=== PATIENT | female | born 1980 | race Caucasian/White ===

== ENCOUNTER 2018-08-19 11:31 | Emergency (ER) | payer OTHER, MEDICAID, SELFPAY ==
[2018-08-19 11:33] VITALS: BP 153/98; PULSE 108; RESP 20; TEMP 36.6; O2SAT 98; BMI 31.3
[2018-08-19 12:06] LABS: Appearance Urine UA SL CLOUDY; Bilirubin Urine UA NEGATIVE (NEGATIVE); Color Urine UA ORANGE; Glucose Urine UA 1+ g/dL (Normal); Ketones Urine UA TRACE (NEGATIVE); Leukocyte Esterase Urine UA 1+ (NEGATIVE); Nitrite Urine UA POSITIVE (Negative); Occult Blood Urine UA 1+ (Negative); Protein Urine UA 3+ (Negative); Specific Gravity Urine UA 1.015 (1.000-1.035); Urobilinogen Urine UA >=8.0 E.U./dL (0.2); pH Urine UA 6.5 (4.5-8.0)
[2018-08-19 12:10] LABS: Pregnancy Test Urine Negative (Negative)
[2018-08-19 12:22] LABS: Bacteria Urine Many (>30); Culture Indicated Urine Specimen Cultured; Mucus Urine 2+ (Negative); RBC Urine 5-10/HPF (0-5/HPF); Squamous Epithelial Cell Urine 1-5 /HPF; WBC Urine 1-5/HPF (0-5/HPF)
--- NOTE | 2018-08-19 12:24 | ED.FEMALEGU ---
HPI - Female Genitourinary General Chief complaint: Urogenital-Female Stated complaint: Kidney Stones Time Seen by Provider: 08/19/18 12:24 Source: patient Mode of arrival: ambulatory Limitations: no limitations History of Present Illness HPI Narrative: Patient is a 37-year-old female with history of kidney stones presenting with left flank pain and painful frequent urination. She says she has had some dysuria for the last 2 days but today is the 1st day when to her flank and is now radiating to her abdomen like previous kidney stones. She feels nauseous at times but no vomiting. No fevers or chills. She says Toradol never works for her but Dilaudid does. MD Complaint: dysuria and UTI Related Data Home Medications Medication Instructions Recorded Confirmed sertraline [Zoloft] 150 mg PO QPM 08/19/18 08/19/18 spironolactone 100 mg PO DAILY 08/19/18 08/19/18 Previous Rx's Medication Instructions Recorded lorazepam 0.5 mg tablet 0.5 mg PO BIDP PRN #10 tab 08/19/18 meloxicam [Mobic] 7.5 mg PO DAILY PRN #20 tab 08/19/18 nitrofurantoin monohyd/m-cryst 100 mg PO Q12H 7 Days #14 cap 08/19/18 [Macrobid] ondansetron 4 mg PO Q6-8H PRN #10 tab 08/19/18 oxycodone-acetaminophen 1 tab PO Q4-6H PRN #10 tab 08/19/18 Allergies Allergy/AdvReac Type Severity Reaction Status Date / Time hydrocodone [HYDROCODONE] AdvReac Unknown ITCHING Verified 08/19/18 11:41 Review of Systems Review of Systems GENERAL: Denies chills, fatigue, malaise, fever, sweats, travel HEENT: Denies sinus pain, ear pain, sore throat, difficulty swallowing, neck pain RESPIRATORY: Denies dyspnea, cough, wheezing, hemoptysis, sputum. CARDIOVASCULAR: Denies chest pain, palpitations, orthopnea, edema GASTROINTESTINAL: Denies nausea, vomiting, abdominal pain, diarrhea, constipation, melena. : See HPI MUSCULOSKELETAL: Denies weakness, joint pain, or bony pain SKIN: No rash, no erythema, no pruritus NEUROLOGIC: Denies weakness, dizziness, headache, numbness, change in speech, confusion PSYCHIATRIC: No concerning psychosocial issues. 12 point review of systems is negative except for those stated above and HPI PFSH Medical History Kidney stones (Acute) Anxiety (Chronic ~1997) Depression (Chronic ~1997) Irregular periods/menstrual cycles (Chronic ~1997) Ovarian cyst (Chronic ~1997) Surgical History Anesthesia (Resolved) History of back surgery (Resolved) History of third molar tooth extraction (Resolved) Status post delivery (Resolved 04/23/02) Status post delivery (Resolved 03/20/05) Status post delivery (Resolved 2016) Social History marital status: unmarried,living together number of children: 3 household members: family lives independently: Yes education level: college occupational status: employed Smoking Status: Never smoker alcohol intake: current substance use type: does not use Exam Initial Vital Signs Initial Vital Signs: Vital Signs Temperature 98 F 08/19/18 11:33 Pulse Rate 108 H 08/19/18 11:33 Respiratory Rate 20 08/19/18 11:33 Blood Pressure 153/98 H 08/19/18 11:33 Pulse Oximetry 98 08/19/18 11:33 GENERAL: Appears uncomfortable holding left flank HEENT: Head atraumatic,EOMI, pupils reactive, face symmetric, CARDIOVASCULAR: Regular rate and rhythm without murmurs, rubs or gallops. RESPIRATORY: Breath sounds equal bilaterally, no wheezes rales or rhonchi. ABDOMEN: Soft, nontender. Normoactive bowel sounds all 4 quadrants. No guarding or rebound. : Left CVA tenderness EXTREMITIES: Normal range of motion, no clubbing or edema. Neurovascularly intact NEUROLOGICAL: Alert and oriented x4.Normal gait and speech. Cranial nerves II through XII grossly intact. SKIN: Warm, dry, no laceration, no petechiae, no rashes or lesions. Course Orders Ordered: ED Orders 08/19/18 11:57 Test Urine Stat UA dip and micro [Urinalysis and Microscopic] Stat Urine Culture Stat 08/19/18 12:38 Complete Blood Count AUTO DIFF Stat Comprehensive Metabolic Panel Stat Lipase Stat Discontinued Medications Hydromorphone HCl (Dilaudid) 1 mg IV NOW ONE Stop: 08/19/18 13:28 Last Admin: 08/19/18 13:38 Dose: 1 mg Sodium Chloride (Normal Saline 0.9%) 1,000 mls @ 1,000 mls/hr IV CONT REMY Last Infusion: 08/19/18 14:00 Dose: 0 mls/hr Admin: 08/19/18 12:46 Dose: 1,000 mls/hr Lidocaine HCl 6.8 ml/ Sodium (Chloride) 56.8 mls @ 340.8 mls/hr IV NOW ONE Stop: 08/19/18 12:54 Last Infusion: 08/19/18 13:43 Dose: 0 mls/hr Admin: 08/19/18 13:05 Dose: 340.8 mls/hr Ketorolac Tromethamine (Toradol) 30 mg IV NOW ONE Stop: 08/19/18 12:30 Last Admin: 08/19/18 12:46 Dose: 30 mg Ondansetron HCl (Zofran) 4 mg IV NOW ONE Stop: 08/19/18 12:30 Last Admin: 08/19/18 12:46 Dose: 4 mg Vital Signs - 8 hr 08/19/18 11:33 08/19/18 12:47 08/19/18 13:08 Temperature 98 F Pulse Rate 108 H 84 74 Respiratory Rate 20 22 18 Blood Pressure 153/98 H Blood Pressure [Right Arm] 139/87 145/98 H Pulse Oximetry 98 99 08/19/18 14:00 08/19/18 14:46 Temperature Pulse Rate 81 74 Respiratory Rate 18 16 Blood Pressure Blood Pressure [Right Arm] 137/86 134/84 Pulse Oximetry 98 MDM - Female Genitourinary Lab Data Attestation: I reviewed the patient's lab results. Result diagrams: 08/19/18 12:38 08/19/18 12:38 Lab Results 08/19/18 08/19/18 08/19/18 Range/Units 11:57 11:57 12:38 WBC 8.1 (4.5-11.0) X10^3/uL RBC 5.17 (4.0-5.2) X10^6/uL Hgb 14.6 (12.0-16.0) g/dL Hct 43.0 (36-46) % MCV 83.2 (80-100) fL MCH 28.3 (26-34) PG MCHC 34.0 (30-36) % RDW 13.6 (11.6-14.8) % Plt Count 152 (150-400) X10^3/uL Neut % (Auto) 75.2 H (50-75) % Lymph % (Auto) 18.5 L (25-40) % [place] % (Auto) 5.5 (3-14) % Eos % (Auto) 0.4 L (2-4) % Baso % (Auto) 0.4 (0-2) % Neut # (Auto) 6100 (9928-1995) /uL Sodium (137-145) mmol/L Potassium (3.4-5.1) mmol/L Chloride (98-107) mmol/L Carbon Dioxide (22-32) mmol/L BUN (7-17) mg/dL Creatinine (0.52-1.04) mg/dL Estimated GFR (>60) mL/min BUN/Creatinine Ratio (6-22) Glucose (70-100) mg/dL Calcium (8.4-10.2) mg/dL Total Bilirubin (0.2-1.3) mg/dL AST (14-36) IU/L ALT (9-52) IU/L Alkaline Phosphatase (38-126) U/L Total Protein (6.3-8.2) g/dL Albumin (3.5-5.0) g/dL Globulin (1.7-4.1) g/dL Albumin/Globulin Ratio (1.0-2.8) Lipase (23-300) U/L Urine Color [place] Urine Appearance Sl cloudy Urine pH 6.5 (4.5-8.0) Ur Specific [place] 1.015 (1.000-1.035) Urine Protein 3+ H (Negative) Urine Glucose (UA) 1+ (Normal) g/dL Urine Ketones Trace H (NEGATIVE) Urine Occult Blood 1+ H (Negative) Urine Nitrate Positive H (Negative) Urine Bilirubin Negative (NEGATIVE) Urine Urobilinogen >=8.0 (0.2) E.U./dL Ur Leukocyte Esterase 1+ H (NEGATIVE) Urine RBC 5-10/hpf H (0-5/HPF) Urine WBC 1-5/hpf (0-5/HPF) Ur Squamous Epith Cells 1-5 /hpf Urine Bacteria Many (>30) H (None) Urine Mucus 2+ H (Negative) Ur Culture Indicated? Specimen cultured Micro UA Comment Not Reportable Urine Test Negative (Negative) 08/19/18 Range/Units 12:38 WBC (4.5-11.0) X10^3/uL RBC (4.0-5.2) X10^6/uL Hgb (12.0-16.0) g/dL Hct (36-46) % MCV (80-100) fL MCH (26-34) PG MCHC (30-36) % RDW (11.6-14.8) % Plt Count (150-400) X10^3/uL Neut % (Auto) (50-75) % Lymph % (Auto) (25-40) % [place] % (Auto) (3-14) % Eos % (Auto) (2-4) % Baso % (Auto) (0-2) % Neut # (Auto) (4444-3135) /uL Sodium 144 (137-145) mmol/L Potassium 3.9 (3.4-5.1) mmol/L Chloride 105 (98-107) mmol/L Carbon Dioxide 27 (22-32) mmol/L BUN 12 (7-17) mg/dL Creatinine 0.70 (0.52-1.04) mg/dL Estimated GFR > 60.0 (>60) mL/min BUN/Creatinine Ratio 17.1 (6-22) Glucose 106 H (70-100) mg/dL Calcium 9.3 (8.4-10.2) mg/dL Total Bilirubin 0.6 (0.2-1.3) mg/dL AST 18 (14-36) IU/L ALT 22 (9-52) IU/L Alkaline Phosphatase 68 (38-126) U/L Total Protein 7.1 (6.3-8.2) g/dL Albumin 4.4 (3.5-5.0) g/dL Globulin 2.7 (1.7-4.1) g/dL Albumin/Globulin Ratio 1.6 (1.0-2.8) Lipase 55 (23-300) U/L Urine Color Urine Appearance Urine pH (4.5-8.0) Ur Specific [place] (1.000-1.035) Urine Protein (Negative) Urine Glucose (UA) (Normal) g/dL Urine Ketones (NEGATIVE) Urine Occult Blood (Negative) Urine Nitrate (Negative) Urine Bilirubin (NEGATIVE) Urine Urobilinogen (0.2) E.U./dL Ur Leukocyte Esterase (NEGATIVE) Urine RBC (0-5/HPF) Urine WBC (0-5/HPF) Ur Squamous Epith Cells Urine Bacteria (None) Urine Mucus (Negative) Ur Culture Indicated? Micro UA Comment Urine Test (Negative) MDM Narrative Medical decision making narrative: Toradol and lidocaine helped slightly take the edge off of the pain however she is still quite uncomfortable. She is given 1 dose of Dilaudid. I suspect that she has knee stone. She said that she has never needed intervention for her kidney stones. She has had multiple CTs in the past this time I do not see indication for a CT. She also likely has UTI and possible pyelonephritis but does not appear septic or toxic. This time treat as outpatient with antibiotics and pain meds. Discharge Plan Departure Patient Disposition: Home Clinical Impression: UTI (urinary tract infection), Kidney stone on left side Discharge Date/Time: 08/19/18 15:14 Interventions: ED Discharge Assessment Last Done: 08/19/18 15:15 Instructions: Urinary Tract Infection, DI for Kidney Stones Activity Restrictions/Additional Instructions: *You have been diagnosed with presumed left-sided kidney stone and bladder infection *What to do: Increase fluid intake, expect to pass stone in the next 2-3 days *Continue to take medications as directed: FAXED TO [facility] IN [place] Mobic once a day for inflammation Percocet 1 tab every 6 hr as needed for severe pain Zofran 1 tab every 868 hr if needed for nausea or vomiting Bactrim 1 tab twice a day for 7 days *Follow up with your primary care provider in 2-3 days, talk to her PCP about referral to Urology *Return to ER if you should have persistent vomiting, increasing or any new, worsening or concerning symptoms Prescriptions: New meloxicam [Mobic] 7.5 mg tablet 7.5 mg PO DAILY PRN (Reason: pain) Qty: 20 RF: 0 oxycodone-acetaminophen 5-325 mg tablet 1 tab PO Q4-6H PRN (Reason: pain) Qty: 10 RF: 0 nitrofurantoin monohyd/m-cryst [Macrobid] 100 mg capsule 100 mg PO Q12H 7 Days Qty: 14 RF: 0 ondansetron 4 mg tablet,disintegrating 4 mg PO Q6-8H PRN (Reason: nausea and vomiting) Qty: 10 RF: 0 No Action lorazepam 0.5 mg tablet 0.5 mg PO BIDP PRN (Reason: anxiety) Qty: 10 RF: 0 sertraline [Zoloft] 100 mg tablet 150 mg PO QPM RF: 0 spironolactone 100 mg tablet 100 mg PO DAILY RF: 0 Referrals: Nayeli Levi DO [Primary Care Provider] -
[2018-08-19] MEDS: KETOROLAC 60 MG/2 ML VIAL 30 MG IV (12:46)
[2018-08-19] MEDS: ONDANSETRON 4 MG/2 ML INJ IV (12:46)
[2018-08-19] MEDS: SODIUM CHLORIDE 0.9% 1,000 ML 1000 ML IV (12:46)
[2018-08-19 12:47] VITALS: BP 139/87; PULSE 84; RESP 22; O2SAT 99
[2018-08-19 12:57] LABS: Add Manual Diff / Slide Review NO; Basophils Percent Auto 0.4 % (0-2); Eosinophils Percent Auto 0.4 % (2-4); Hemoglobin 14.6 g/dL (12.0-16.0); Lymphocytes Percent Auto 18.5 % (25-40); Mean Corpuscular Hemoglobin 28.3 PG (26-34); Mean Corpuscular Volume 83.2 fL (80-100); Monocytes Percent Auto 5.5 % (3-14); Neutrophils Absolute Auto 6100 /uL (1500-7000); Neutrophils Percent Auto 75.2 % (50-75); Platelet Count 152 X10^3/uL (150-400); Red Blood Cell Count 5.17 X10^6/uL (4.0-5.2); Red Cell Distribution Width 13.6 % (11.6-14.8); White Blood Cell Count 8.1 X10^3/uL (4.5-11.0)
[2018-08-19] MEDS: LIDOCAINE 2% 6.8 ML in SODIUM CHLORIDE 0.9% 50 ML 340.8 ML IV (13:05)
[2018-08-19 13:08] VITALS: BP 145/98; PULSE 74; RESP 18
--- NOTE | 2018-08-19 13:08 | PC.NURSE ---
pt states, no relief from toradol, pain worsen, lidocaine drip initiated.
[2018-08-19 13:13] LABS: Alanine Aminotransferase 22 IU/L (9-52); Albumin 4.4 g/dL (3.5-5.0); Albumin Globulin Ratio 1.6 (1.0-2.8); Alkaline Phosphatase 68 U/L (38-126); Aspartate Aminotransferase 18 IU/L (14-36); BUN Creatinine Ratio 17.1 (6-22); Bilirubin Total 0.6 mg/dL (0.2-1.3); Blood Urea Nitrogen 12 mg/dL (7-17); Calcium 9.3 mg/dL (8.4-10.2); Carbon Dioxide 27 mmol/L (22-32); Chloride 105 mmol/L (98-107); Estimated Glomerular Filt Rate > 60.0 mL/min (>60); Globulin 2.7 g/dL (1.7-4.1); Glucose 106 mg/dL (70-100); HEMOLYSIS < 15 (0-50); Lipase 55 U/L (23-300); Potassium 3.9 mmol/L (3.4-5.1); Sodium 144 mmol/L (137-145); Total Protein 7.1 g/dL (6.3-8.2)
[2018-08-19] MEDS: HYDROMORPHONE 2 MG INJ 1 MG IV (13:38)
[2018-08-19 14:00] VITALS: BP 137/86; PULSE 81; RESP 18; O2SAT 98
[2018-08-19 14:46] VITALS: BP 134/84; PULSE 74; RESP 16
== END 2018-08-19 15:14 | disposition home or self-care (01) ==
PROVIDERS: Emergency Provider Emergency Medicine; PCP Family Medicine
DX: N39.0 Urinary tract infection, site not specified (principal); N20.0 Calculus of kidney
CPT/HCPCS: 36591; 80053; 81001; 81025; 83690; 85025; 87086; 96361; 96365; 96375; 99283; 99284; J1170; J1885; J2405

== ENCOUNTER → 2018-10-17 14:09 | Outpatient (CLI) | payer OTHER, MEDICAID, SELFPAY ==
--- NOTE | 2018-10-17 | DI.MG.S_ITS ---
BILATERAL DIGITAL SCREENING MAMMOGRAM 3D/2D WITH CAD: 10/17/2018 CLINICAL: Baseline exam. Routine screening. No prior exams were available for comparison. The tissue of both breasts is heterogeneously dense. This may lower the sensitivity of mammography. Current study was also evaluated with a Computer Aided Detection (CAD) system. No significant masses, calcifications, or other findings are seen in either breast. IMPRESSION: NEGATIVE There is no mammographic evidence of malignancy. A 1 year screening mammogram is recommended. This exam was interpreted at Station ID: [id number]. NOTE: For mammograms, a report in lay terms will be sent to the patient. Approximately 15% of breast malignancies will not be visualized mammographically. In the management of a palpable breast mass, a negative mammogram must not discourage biopsy of a clinically suspicious lesion. Electronically Signed By: Marino latham/duong:10/17/2018 15:31:39 copy to: Nayeli Levi letter sent: Normal Exam ACR BI-RADS Category 1: Negative [id number]
== END ==
PROVIDERS: PCP Family Medicine; Visit Provider Obstetrics & Gynecology
DX: Z12.31 Encounter for screening mammogram for malignant neoplasm of breast (principal)
CPT/HCPCS: 77063; 77067

== ENCOUNTER 2018-11-15 16:51 | Emergency (ER) | payer OTHER, MEDICAID, SELFPAY ==
[2018-11-15 17:07] VITALS: BP 134/78; PULSE 100; RESP 20; TEMP 36.9; O2SAT 100; BMI 32.3
[2018-11-15 18:12] LABS: Add Manual Diff / Slide Review NO; Basophils Absolute Auto 0 /uL (0-100); Basophils Percent Auto 0.3 % (0-2); Eosinophils Absolute Auto 0 /uL (0-450); Eosinophils Percent Auto 0.5 % (2-4); Hematocrit 45.3 % (36-46); Hemoglobin 15.6 g/dL (12.0-16.0); Lymphocytes Absolute Auto 1400 /uL (1100-4500); Lymphocytes Percent Auto 15.1 % (25-40); Mean Corpuscular HGB Conc 34.5 % (30-36); Mean Corpuscular Hemoglobin 28.7 PG (26-34); Mean Corpuscular Volume 83.3 fL (80-100); Monocytes Absolute Auto 400 /uL (0-900); Monocytes Percent Auto 4.4 % (3-14); Neutrophils Absolute Auto 7300 /uL (1500-7000); Neutrophils Percent Auto 79.7 % (50-75); Platelet Count 181 X10^3/uL (150-400); Red Blood Cell Count 5.44 X10^6/uL (4.0-5.2); Red Cell Distribution Width 13.4 % (11.6-14.8); White Blood Cell Count 9.1 X10^3/uL (4.5-11.0)
[2018-11-15 18:21] LABS: Prothrombin Time 11.1 SECONDS (10.1-12.7)
[2018-11-15 18:24] LABS: Amylase 39 U/L (30-110); PTT Partial Thromboplastin Tim 29 SECONDS (26.4-36.2)
[2018-11-15 18:25] LABS: Alanine Aminotransferase 48 IU/L (9-52); Albumin 4.6 g/dL (3.5-5.0); Albumin Globulin Ratio 1.4 (1.0-2.8); Alkaline Phosphatase 72 U/L (38-126); Aspartate Aminotransferase 37 IU/L (14-36); BUN Creatinine Ratio 14.3 (6-22); Bilirubin Total 0.8 mg/dL (0.2-1.3); Blood Urea Nitrogen 10 mg/dL (7-17); Carbon Dioxide 26 mmol/L (22-32); Chloride 97 mmol/L (98-107); Estimated Glomerular Filt Rate > 60.0 mL/min (>60); Globulin 3.4 g/dL (1.7-4.1); Glucose 131 mg/dL (70-100); HEMOLYSIS < 15 (0-50); Lipase 25 U/L (23-300); Potassium 3.2 mmol/L (3.4-5.1); Sodium 136 mmol/L (137-145)
[2018-11-15] MEDS: MORPHINE 4 MG/ML INJ IV ×2 (18:25→19:26)
[2018-11-15] MEDS: ONDANSETRON 4 MG/2 ML INJ IV ×2 (18:25→19:26)
--- NOTE | 2018-11-15 18:30 | DI.CT.S_ITS ---
PROCEDURE: CT ABDOMEN PELVIS W CON INDICATIONS: abd pain, bloating, feels like need to fart but can't. TECHNIQUE: After the administration of intravenous contrast, 5 mm thick sections acquired from the diaphragm to the symphysis. 5 mm coronal and sagittal reformats were acquired. For radiation dose reduction, the following was used: automated exposure control, adjustment of mA and/or kV according to patient size. COMPARISON: None. FINDINGS: Image quality: Excellent. ABDOMEN: Lung bases: Lung bases are clear. Heart size is normal. Solid organs: Liver is normal in size and enhancement. Gallbladder is within normal limits. Biliary system is non dilated. Pancreas enhances normally. Spleen is mildly enlarged measuring 14.3 cm long axis. Spleen is normal in enhancement. No adrenal nodules. Kidneys demonstrate normal size and enhancement, without hydronephrosis. 3 mm nonobstructing stone in the superior pole of the left kidney. 5 mm nonobstructing stone in the interpolar left kidney. 3 mm nonobstructing stone in the midpole of the right kidney. 2 mm nonobstructing stone in the midpole of the right kidney. Peritoneum and bowel: Bowel loops demonstrate normal wall thickness. Large amount of stool noted in the right colon. Moderate amount of stool noted in the proximal transverse colon. No free fluid or air. The appendix is normal. Nodes and vessels: No retroperitoneal or mesenteric adenopathy by size criteria. Aorta and inferior vena cava are normal in size. Miscellaneous: No ventral hernias. PELVIS: Genitourinary: Bladder wall thickness is normal. 3.3 cm left adnexal cysts. Miscellaneous: No inguinal hernias or adenopathy. Bones: No suspicious bony lesions. No vertebral body compression fractures. Lower lumbar spine fixation hardware. IMPRESSION: 1. Large amount of stool in the right colon concerning for constipation. Air graft to the appendix is normal. 3. 3.3 cm left ovarian cyst. 4. Bilateral nonobstructing renal stones. 4. Splenomegaly of uncertain etiology. Dictated by: Destiney Stack MD, PhD on 11/15/2018 at 19:56 Approved by: Destiney Stack MD, PhD on 11/15/2018 at 20:03
--- NOTE | 2018-11-15 18:39 | ED_ITS ---
HPI - Abdominal Pain <KENNA Doe-BC - Last Filed: 11/15/18 21:36> General Chief Complaint: Abdominal Pain Stated Complaint: Thinks her appendix ruptured Time Seen by Provider: 11/15/18 17:41 Source: patient and family Mode of arrival: ambulatory Limitations: no limitations History of Present Illness HPI narrative: Patient is a 38-year-old female with history of insomnia is a nonsmoker presents with her with a chief complaint of abdominal pain x2 days. She complains of difficulty having bowel movements, not passing gas, requesting a straw into her rectum to help decrease the pressure. She complains of lower back pain, nausea. She has not vomited today. She denies any fever. She states she has barely eaten anything today and is requesting chapstick the emergency department. She denies any abdominal surgeries other than sections. She does have a history of several spinal surgeries. She denies any dysuria urgency or frequency. Last menstrual period was approximately 4 weeks ago. Related Data Home Medications Medication Instructions Recorded Confirmed sertraline [Zoloft] 150 mg PO QPM 08/19/18 11/04/18 spironolactone 100 mg PO DAILY 08/19/18 11/04/18 Previous Rx's Medication Instructions Recorded meloxicam [Mobic] 7.5 mg PO DAILY PRN #20 tab 08/19/18 ondansetron 4 mg PO Q6-8H PRN #10 tab 08/19/18 oxycodone-acetaminophen 1 tab PO Q4-6H PRN #10 tab 08/19/18 lorazepam 0.5 mg tablet 0.5 mg PO BIDP PRN #10 tab 10/27/18 sumatriptan 25 mg tablet 25 mg PO Q2H PRN #7 tab 11/04/18 magnesium citrate [Citrate of 120 ml PO DAILY PRN #296 ml 11/15/18 Magnesia] Allergies Allergy/AdvReac Type Severity Reaction Status Date / Time hydrocodone [HYDROCODONE] AdvReac Unknown ITCHING Verified 11/15/18 17:16 Review of Systems <TERE Doe - Last Filed: 11/15/18 21:36> Review of Systems GENERAL: Denies chills, fatigue, malaise, fever, sweats. HEENT: Denies sinus pain, ear pain, sore throat, difficulty swallowing, dizziness. RESPIRATORY: Denies dyspnea, cough, wheezing, hemoptysis, sputum. CARDIOVASCULAR: Denies chest pain, palpitations, orthopnea, edema, GASTROINTESTINAL: See HPI see HPI MUSCULOSKELETAL: denies weakness, joint pain, or bony pain SKIN: Denies rash, skin lesions, or other NEUROLOGIC: Denies weakness, headache, numbness, change in speech, confusion, seizures, incoordination. PSYCHIATRIC: No concerning psychosocial issues. 12 point review of systems is negative except for those stated above PFSH <TERE Doe - Last Filed: 11/15/18 21:36> Medical History Kidney stones (Acute) Anxiety (Chronic ~1997) Depression (Chronic ~1997) Irregular periods/menstrual cycles (Chronic ~1997) Ovarian cyst (Chronic ~1997) Surgical History Anesthesia (Resolved) History of back surgery (Resolved) History of third molar tooth extraction (Resolved) Status post delivery (Resolved 04/23/02) Status post delivery (Resolved 03/20/05) Status post delivery (Resolved 2016) Social History marital status: unmarried,living together number of children: 3 household members: family lives independently: Yes education level: college occupational status: employed Smoking Status: Never smoker alcohol intake: current substance use type: does not use Social History marital status: unmarried,living together number of children: 3 household members: family lives independently: Yes education level: college occupational status: employed Smoking Status: Never smoker alcohol intake: current substance use type: does not use Exam <TERE Doe - Last Filed: 11/15/18 21:36> Narrative Exam Narrative: GENERAL: This is a well-nourished, well-developed patient, crying HEAD: Atraumatic. Normocephalic. No temporal or scalp tenderness. EYES: Pupils equal round and reactive. Extraocular motions intact. No scleral icterus. No injection or drainage. ENT: Nose without bleeding, purulent drainage or septal hematoma. Throat without erythema, tonsillar hypertrophy or exudate. Uvula midline. Airway patent. NECK: Trachea midline. No JVD or lymphadenopathy. Supple, nontender, no meningeal signs. CARDIOVASCULAR: Regular rate and rhythm without murmurs, gallops, or rubs. RESPIRATORY: Clear to auscultation. Breath sounds equal bilaterally. No wheezes, rales, or rhonchi. No increased respiratory effort. No coughing. GASTROINTESTINAL: Abdomen soft, diffusely tender, nondistended. No hepato- splenomegaly, or palpable masses. Active bowel sounds all 4 quadrants. No guarding to palpation of right upper quadrant. Negative Jones sign. EXTREMITIES: No clubbing, cyanosis, or edema. No joint tenderness, effusion, or edema noted. BACK: Nontender without deformity or crepitance. No flank tenderness. NEURO: AOx3. Crying, yelling, somewhat histrionic SKIN: No rash or erythema. Initial Vital Signs Initial Vital Signs: Vital Signs Temperature 98.5 F 11/15/18 17:07 Pulse Rate 100 H 11/15/18 17:07 Respiratory Rate 20 11/15/18 17:07 Blood Pressure 134/78 11/15/18 17:07 Pulse Oximetry 100 11/15/18 17:07 <Poonam Maher DO - Last Filed: 11/16/18 04:31> Initial Vital Signs Initial Vital Signs: Vital Signs Temperature 98.5 F 11/15/18 17:07 Pulse Rate 100 H 11/15/18 17:07 Respiratory Rate 20 11/15/18 17:07 Blood Pressure 134/78 11/15/18 17:07 Pulse Oximetry 100 11/15/18 17:07 Course <KENNA Doe-BC - Last Filed: 11/15/18 21:36> Course Narrative: I checked on the patient several times throughout her stay in the emergency department Orders Ordered: Discontinued Medications Diphenhydramine HCl (Benadryl) 25 mg IV NOW ONE Stop: 11/15/18 19:20 Last Admin: 11/15/18 19:26 Dose: 25 mg Sodium Chloride (Normal Saline 0.9%) 1,000 mls @ 1,000 mls/hr IV BOLUS ONE Stop: 11/15/18 19:28 Last Infusion: 11/15/18 19:51 Dose: 0 mls/hr Admin: 11/15/18 18:40 Dose: 1,000 mls/hr Morphine Sulfate (Morphine) 4 mg IV NOW ONE Stop: 11/15/18 17:58 Last Admin: 11/15/18 18:25 Dose: 4 mg Morphine Sulfate (Morphine) 4 mg IV NOW ONE Stop: 11/15/18 18:49 Last Admin: 11/15/18 19:26 Dose: 4 mg Ondansetron HCl (Zofran) 4 mg IV NOW ONE Stop: 11/15/18 17:42 Last Admin: 11/15/18 18:25 Dose: 4 mg Ondansetron HCl (Zofran) 4 mg IV NOW ONE Stop: 11/15/18 19:02 Last Admin: 11/15/18 19:26 Dose: 4 mg Ondansetron HCl (Zofran Odt) 4 mg SL NOW ONE Stop: 11/15/18 20:52 Last Admin: 11/15/18 20:52 Dose: 4 mg Potassium Chloride (Potassium Chloride) 40 meq PO NOW ONE Stop: 11/15/18 20:40 Last Admin: 11/15/18 20:48 Dose: 40 meq Vital Signs - 8 hr 11/15/18 21:06 Temperature 97.6 F Pulse Rate 95 H Respiratory Rate 18 Blood Pressure 134/87 Pulse Oximetry 98 <Poonam Maher DO - Last Filed: 11/16/18 04:31> Orders Ordered: Discontinued Medications Diphenhydramine HCl (Benadryl) 25 mg IV NOW ONE Stop: 11/15/18 19:20 Last Admin: 11/15/18 19:26 Dose: 25 mg Sodium Chloride (Normal Saline 0.9%) 1,000 mls @ 1,000 mls/hr IV BOLUS ONE Stop: 11/15/18 19:28 Last Infusion: 11/15/18 19:51 Dose: 0 mls/hr Admin: 11/15/18 18:40 Dose: 1,000 mls/hr Morphine Sulfate (Morphine) 4 mg IV NOW ONE Stop: 11/15/18 17:58 Last Admin: 11/15/18 18:25 Dose: 4 mg Morphine Sulfate (Morphine) 4 mg IV NOW ONE Stop: 11/15/18 18:49 Last Admin: 11/15/18 19:26 Dose: 4 mg Ondansetron HCl (Zofran) 4 mg IV NOW ONE Stop: 11/15/18 17:42 Last Admin: 11/15/18 18:25 Dose: 4 mg Ondansetron HCl (Zofran) 4 mg IV NOW ONE Stop: 11/15/18 19:02 Last Admin: 11/15/18 19:26 Dose: 4 mg Ondansetron HCl (Zofran Odt) 4 mg SL NOW ONE Stop: 11/15/18 20:52 Last Admin: 11/15/18 20:52 Dose: 4 mg Potassium Chloride (Potassium Chloride) 40 meq PO NOW ONE Stop: 11/15/18 20:40 Last Admin: 11/15/18 20:48 Dose: 40 meq Vital Signs - 8 hr 11/15/18 21:06 Temperature 97.6 F Pulse Rate 95 H Respiratory Rate 18 Blood Pressure 134/87 Pulse Oximetry 98 MDM - Abdominal Pain <KENNA Doe- - Last Filed: 11/15/18 21:36> Lab Data Result diagrams: 11/15/18 17:55 11/15/18 17:55 Lab Results 11/15/18 11/15/18 11/15/18 Range/Units 17:55 17:55 17:55 WBC 9.1 (4.5-11.0) X10^3/uL RBC 5.44 H (4.0-5.2) X10^6/uL Hgb 15.6 (12.0-16.0) g/dL Hct 45.3 (36-46) % MCV 83.3 (80-100) fL MCH 28.7 (26-34) PG MCHC 34.5 (30-36) % RDW 13.4 (11.6-14.8) % Plt Count 181 (150-400) X10^3/uL Neut % (Auto) 79.7 H (50-75) % Lymph % (Auto) 15.1 L (25-40) % [place] % (Auto) 4.4 (3-14) % Eos % (Auto) 0.5 L (2-4) % Baso % (Auto) 0.3 (0-2) % Neut # (Auto) 7300 H (4716-9859) /uL Lymph # (Auto) 1400 (1690-2660) /uL [place] # (Auto) 400 (0-900) /uL Eos # (Auto) 0 (0-450) /uL Baso # (Auto) 0 (0-100) /uL PT 11.1 (10.1-12.7) SECONDS INR 1.0 (0.9-1.3) APTT 29 (26.4-36.2) SECONDS Sodium 136 L (137-145) mmol/L Potassium 3.2 L (3.4-5.1) mmol/L Chloride 97 L (98-107) mmol/L Carbon Dioxide 26 (22-32) mmol/L BUN 10 (7-17) mg/dL Creatinine 0.70 (0.52-1.04) mg/dL Estimated GFR > 60.0 (>60) mL/min BUN/Creatinine Ratio 14.3 (6-22) Glucose 131 H (70-100) mg/dL Lactate (0.7-2.1) mmol/L Calcium 10.0 (8.4-10.2) mg/dL Total Bilirubin 0.8 (0.2-1.3) mg/dL AST 37 H (14-36) IU/L ALT 48 (9-52) IU/L Alkaline Phosphatase 72 (38-126) U/L Total Protein 8.0 (6.3-8.2) g/dL Albumin 4.6 (3.5-5.0) g/dL Globulin 3.4 (1.7-4.1) g/dL Albumin/Globulin Ratio 1.4 (1.0-2.8) Amylase (30-110) U/L Lipase 25 (23-300) U/L 11/15/18 11/15/18 Range/Units 17:55 18:15 WBC (4.5-11.0) X10^3/uL RBC (4.0-5.2) X10^6/uL Hgb (12.0-16.0) g/dL Hct (36-46) % MCV (80-100) fL MCH (26-34) PG MCHC (30-36) % RDW (11.6-14.8) % Plt Count (150-400) X10^3/uL Neut % (Auto) (50-75) % Lymph % (Auto) (25-40) % [place] % (Auto) (3-14) % Eos % (Auto) (2-4) % Baso % (Auto) (0-2) % Neut # (Auto) (6835-5494) /uL Lymph # (Auto) (1051-1413) /uL [place] # (Auto) (0-900) /uL Eos # (Auto) (0-450) /uL Baso # (Auto) (0-100) /uL PT (10.1-12.7) SECONDS INR (0.9-1.3) APTT (26.4-36.2) SECONDS Sodium (137-145) mmol/L Potassium (3.4-5.1) mmol/L Chloride (98-107) mmol/L Carbon Dioxide (22-32) mmol/L BUN (7-17) mg/dL Creatinine (0.52-1.04) mg/dL Estimated GFR (>60) mL/min BUN/Creatinine Ratio (6-22) Glucose (70-100) mg/dL Lactate 2.0 (0.7-2.1) mmol/L Calcium (8.4-10.2) mg/dL Total Bilirubin (0.2-1.3) mg/dL AST (14-36) IU/L ALT (9-52) IU/L Alkaline Phosphatase (38-126) U/L Total Protein (6.3-8.2) g/dL Albumin (3.5-5.0) g/dL Globulin (1.7-4.1) g/dL Albumin/Globulin Ratio (1.0-2.8) Amylase 39 (30-110) U/L Lipase (23-300) U/L Point of care testing: Point of Care Testing Test Results Negative Urine Dip Bedside Urine Glucose Negative Bedside Urine Bilirubin - Negative Bedside Urine Ketone + 15 Urine Specific [place] 1.010 Bedside Urine Occult Blood - Negative Bedside Urine pH 7.5 Bedside Urine Protein - Negative Bedside Urine Urobilinogen - Negative Bedside Urine Nitrite - Negative Bedside Urine Leukocytes - Negative Esterase Imaging Data pelvic us: Radiologist's impression: [address] [address] Ultrasound Report Signed Patient: Gaviota Morales LMR#: [id number] : 1980Acct:[id number] Age/Sex: 38 / FDate of Service: 11/15/18 Loc: ED Accession Number: [id number] Procedure: US pelvic complete Ordering Provider: Mariaelena Polanco STAFF AUDITOR- PROCEDURE: US PELVIC COMPLETE INDICATIONS: PAIN, BLOATING TECHNIQUE: Real-time scanning was performed of the pelvic organs, with image documentation. Additional endovaginal scanning was necessary due to incomplete visualization of the adnexal and endometrial structures by transabdominal scanning. COMPARISON: None. FINDINGS: Transabdominal scanning: Limited scanning through the kidneys shows no hydronephrosis. No pathologic free abdominal or pelvic fluid. Endovaginal scanning: Uterus: Uterus is normal in size at 8.1 x 5.0 x 6.6 cm. The endometrium measures 3.5 mm in combined thickness. Uterine echotexture is normal. Ovaries: Right adnexa measures 3.5 x 1.7 x 2.7 cm. Right adnexa is sonographically normal. Left adnexa measures 2.4 x 2.8 x 3.6 cm. There is a 3.5 x 2.3 x 3.4 cm simple left ovarian cyst. IMPRESSION: 1. The uterus is sonographically normal. 2. The right adnexa sonographically normal. 3. Left ovarian cyst. Dictated by: Destiney Stack MD, PhD on 11/15/2018 at 19:36 Approved by: Destiney Stack MD, PhD on 11/15/2018 at 19:37 CT scan - abdomen: Radiologist's impression: [place] [address] CT Scan Report Signed Patient: Gaviota Morales LMR#: [id number] : 1980Acct:[id number] Age/Sex: 38 / FDate of Service: 11/15/18 Loc: ED Accession Number: [id number] Procedure: CT abdomen pelvis w con Ordering Provider: Mariaelena Polanco [facility] PROCEDURE: CT ABDOMEN PELVIS W CON INDICATIONS: abd pain, bloating, feels like need to fart but can't. TECHNIQUE: After the administration of intravenous contrast, 5 mm thick sections acquired from the diaphragm to the symphysis. 5 mm coronal and sagittal reformats were acquired. For radiation dose reduction, the following was used: automated exposure control, adjustment of mA and/or kV according to patient size. COMPARISON: None. FINDINGS: Image quality: Excellent. ABDOMEN: Lung bases: Lung bases are clear. Heart size is normal. Solid organs: Liver is normal in size and enhancement. Gallbladder is within normal limits. Biliary system is non dilated. Pancreas enhances normally. Spleen is mildly enlarged measuring 14.3 cm long axis. Spleen is normal in enhancement. No adrenal nodules. Kidneys demonstrate normal size and enhancement, without hydronephrosis. 3 mm nonobstructing stone in the superior pole of the left kidney. 5 mm nonobstructing stone in the interpolar left kidney. 3 mm nonobstructing stone in the midpole of the right kidney. 2 mm nonobstructing stone in the midpole of the right kidney. Peritoneum and bowel: Bowel loops demonstrate normal wall thickness. Large amount of stool noted in the right colon. Moderate amount of stool noted in the proximal transverse colon. No free fluid or air. The appendix is normal. Nodes and vessels: No retroperitoneal or mesenteric adenopathy by size criteria. Aorta and inferior vena cava are normal in size. Miscellaneous: No ventral hernias. PELVIS: Genitourinary: Bladder wall thickness is normal. 3.3 cm left adnexal cysts. Miscellaneous: No inguinal hernias or adenopathy. Bones: No suspicious bony lesions. No vertebral body compression fractures. Lower lumbar spine fixation hardware. IMPRESSION: 1. Large amount of stool in the right colon concerning for constipation. Air graft to the appendix is normal. 3. 3.3 cm left ovarian cyst. 4. Bilateral nonobstructing renal stones. 4. Splenomegaly of uncertain etiology. Dictated by: Destiney Stack MD, PhD on 11/15/2018 at 19:56 Approved by: Destiney Stack MD, PhD on 11/15/2018 at 20:[address] [facility] Narrative Medical decision making narrative: The patient is a 38-year-old female who presents with ?I think I ruptured my appendix. She is crying and somewhat difficult to assess. However she is afebrile, has a normal lactate not have elevated white blood cell count. He given her history of polycystic ovarian syndrome, I obtained a pelvic ultrasound which showed a simple left ovarian cyst. Given the level of her pain, I did obtain an abdominal CT, especially with her complaints of not passing gas and no bowel movements for a few days. This CT scan showed a large amount of stool, but no bowel obstruction. The patient was treated with IV fluids, nausea medication pain medication throughout her stay in the emergency department. After she received her pain medication, I went into the exam room and she appeared comfortable and was speaking on her cell phone. She asked me to wait a minute, so she could make a phone call. Her Potassium was on the low side of normal, so she was given a single dose replacement. I discussed at length that she needs to have a bowel movement, encourage fluids and give her prescription for magnesium citrate. I encouraged to follow up with her primary care provider as well as come back to the emergency department. Discussed return precautions of inability keep down fluids, acute concerns. Patient questions or concerns upon discharge and was able to ambulate steadily outside the emergency department. <Poonam Maher, DO - Last Filed: 11/16/18 04:31> Lab Data Lab Results 11/15/18 11/15/18 11/15/18 Range/Units 17:55 17:55 17:55 WBC 9.1 (4.5-11.0) X10^3/uL RBC 5.44 H (4.0-5.2) X10^6/uL Hgb 15.6 (12.0-16.0) g/dL Hct 45.3 (36-46) % MCV 83.3 (80-100) fL MCH 28.7 (26-34) PG MCHC 34.5 (30-36) % RDW 13.4 (11.6-14.8) % Plt Count 181 (150-400) X10^3/uL Neut % (Auto) 79.7 H (50-75) % Lymph % (Auto) 15.1 L (25-40) % [place] % (Auto) 4.4 (3-14) % Eos % (Auto) 0.5 L (2-4) % Baso % (Auto) 0.3 (0-2) % Neut # (Auto) 7300 H (7288-7573) /uL Lymph # (Auto) 1400 (4098-3151) /uL [place] # (Auto) 400 (0-900) /uL Eos # (Auto) 0 (0-450) /uL Baso # (Auto) 0 (0-100) /uL PT 11.1 (10.1-12.7) SECONDS INR 1.0 (0.9-1.3) APTT 29 (26.4-36.2) SECONDS Sodium 136 L (137-145) mmol/L Potassium 3.2 L (3.4-5.1) mmol/L Chloride 97 L (98-107) mmol/L Carbon Dioxide 26 (22-32) mmol/L BUN 10 (7-17) mg/dL Creatinine 0.70 (0.52-1.04) mg/dL Estimated GFR > 60.0 (>60) mL/min BUN/Creatinine Ratio 14.3 (6-22) Glucose 131 H (70-100) mg/dL Lactate (0.7-2.1) mmol/L Calcium 10.0 (8.4-10.2) mg/dL Total Bilirubin 0.8 (0.2-1.3) mg/dL AST 37 H (14-36) IU/L ALT 48 (9-52) IU/L Alkaline Phosphatase 72 (38-126) U/L Total Protein 8.0 (6.3-8.2) g/dL Albumin 4.6 (3.5-5.0) g/dL Globulin 3.4 (1.7-4.1) g/dL Albumin/Globulin Ratio 1.4 (1.0-2.8) Amylase (30-110) U/L Lipase 25 (23-300) U/L 11/15/18 11/15/18 Range/Units 17:55 18:15 WBC (4.5-11.0) X10^3/uL RBC (4.0-5.2) X10^6/uL Hgb (12.0-16.0) g/dL Hct (36-46) % MCV (80-100) fL MCH (26-34) PG MCHC (30-36) % RDW (11.6-14.8) % Plt Count (150-400) X10^3/uL Neut % (Auto) (50-75) % Lymph % (Auto) (25-40) % [place] % (Auto) (3-14) % Eos % (Auto) (2-4) % Baso % (Auto) (0-2) % Neut # (Auto) (7339-2681) /uL Lymph # (Auto) (8621-3512) /uL [place] # (Auto) (0-900) /uL Eos # (Auto) (0-450) /uL Baso # (Auto) (0-100) /uL PT (10.1-12.7) SECONDS INR (0.9-1.3) APTT (26.4-36.2) SECONDS Sodium (137-145) mmol/L Potassium (3.4-5.1) mmol/L Chloride (98-107) mmol/L Carbon Dioxide (22-32) mmol/L BUN (7-17) mg/dL Creatinine (0.52-1.04) mg/dL Estimated GFR (>60) mL/min BUN/Creatinine Ratio (6-22) Glucose (70-100) mg/dL Lactate 2.0 (0.7-2.1) mmol/L Calcium (8.4-10.2) mg/dL Total Bilirubin (0.2-1.3) mg/dL AST (14-36) IU/L ALT (9-52) IU/L Alkaline Phosphatase (38-126) U/L Total Protein (6.3-8.2) g/dL Albumin (3.5-5.0) g/dL Globulin (1.7-4.1) g/dL Albumin/Globulin Ratio (1.0-2.8) Amylase 39 (30-110) U/L Lipase (23-300) U/L Point of care testing: Point of Care Testing Test Results Negative Urine Dip Bedside Urine Glucose Negative Bedside Urine Bilirubin - Negative Bedside Urine Ketone + 15 Urine Specific [place] 1.010 Bedside Urine Occult Blood - Negative Bedside Urine pH 7.5 Bedside Urine Protein - Negative Bedside Urine Urobilinogen - Negative Bedside Urine Nitrite - Negative Bedside Urine Leukocytes - Negative Esterase Discharge Plan Departure Patient Disposition: Home Clinical Impression: Constipation Qualifiers: Constipation type: unspecified constipation type Qualified Code(s): K59.00 - Constipation, unspecified Ovarian cyst Qualifiers: Laterality: left Qualified Code(s): N83.202 - Unspecified ovarian cyst, left side Discharge Date/Time: 11/15/18 21:07 Interventions: ED Discharge Assessment Last Done: 11/15/18 21:06 Instructions: Constipation (Alternative Therapy), Increased Dietary Fiber May Improve Constipation Conditions With Pelvic Anastacio, DI for Ovarian Cyst, DI for Constipation Activity Restrictions/Additional Instructions: Her labs came back normal tonight. Her imaging revealed a left ovarian cyst as well as a large amount of constipation. I have given you a prescription for magnesium citrate. Please take this when you get home to help with the constipation. Please push fiber and fluids. Please follow up with primary care provider. Come back to the emergency department for any acute concerns. Prescriptions: New magnesium citrate [Citrate of Magnesia] solution 120 ml PO DAILY PRN (Reason: constipation) Qty: 296 RF: 0 No Action lorazepam 0.5 mg tablet 0.5 mg PO BIDP PRN (Reason: anxiety) Qty: 10 RF: 0 sumatriptan succinate 25 mg tablet 25 mg PO Q2H PRN (Reason: migraine headache) Qty: 7 RF: 0 sertraline [Zoloft] 100 mg tablet 150 mg PO QPM RF: 0 spironolactone 100 mg tablet 100 mg PO DAILY RF: 0 meloxicam [Mobic] 7.5 mg tablet 7.5 mg PO DAILY PRN (Reason: pain) Qty: 20 RF: 0 oxycodone-acetaminophen 5-325 mg tablet 1 tab PO Q4-6H PRN (Reason: pain) Qty: 10 RF: 0 ondansetron 4 mg tablet,disintegrating 4 mg PO Q6-8H PRN (Reason: nausea and vomiting) Qty: 10 RF: 0 Referrals: Nayeli Levi DO [Primary Care Provider] - <Poonam Maher DO - Last Filed: 11/16/18 04:31> Cosign ED Attending Caliature Attestation: I was immediately available in the department for consultation. Documentation has been reviewed. I agree with assessment and plan.
[2018-11-15] MEDS: SODIUM CHLORIDE 0.9% 1,000 ML 1000 ML IV (18:40)
[2018-11-15 18:44] VITALS: BP 139/86; PULSE 86; RESP 22; O2SAT 100
[2018-11-15] MEDS: diphenhydrAMINE 50 MG/ML VIAL 25 MG IV (19:26)
[2018-11-15] MEDS: POTASSIUM CHLORIDE 20 MEQ/15 ML UDC 40 MEQ PO (20:48)
[2018-11-15] MEDS: ONDANSETRON 4 MG ODT SL (20:52)
[2018-11-15 21:06] VITALS: BP 134/87; PULSE 95; RESP 18; TEMP 36.4; O2SAT 98
== END 2018-11-15 21:07 | disposition home or self-care (01) ==
PROVIDERS: Emergency Provider Nurse Practitioner Family; PCP Family Medicine
DX: K59.00 Constipation, unspecified (principal); N83.202 Unspecified ovarian cyst, left side
CPT/HCPCS: 36591; 74177; 76830; 76856; 80053; 81003; 81025; 82150; 83605; 83690; 85025; 85610; 85730; 96361; 96374; 96375; 96376; 99283; 99285; J1200; J2270; J2405; Q9967

== ENCOUNTER → 2018-11-18 16:46 | Outpatient (CLI) | payer OTHER, MEDICAID, SELFPAY ==
--- NOTE | 2018-11-18 16:49 | DI.RAD.S_ITS ---
PROCEDURE: XR ABDOMEN 1V INDICATIONS: abdominal bloating TECHNIQUE: One view of the abdomen acquired. COMPARISON: [facility], CR, XR ACUTE ABDOMEN SERIES, 11/19/2018, 8:09. FINDINGS: Surgical changes and devices: Lower lumbar spine discectomy and fusion. Bowel: Multiple air-fluid levels in the right lower abdomen. There is paucity of colonic gas. Soft tissues: No suspicious abdominal calcifications. Visualized solid organ contours appear normal in size. Bones: No suspicious bony lesions. IMPRESSION: Suspect developing small bowel obstruction. Dictated by: Wendy Hutchinson M.D. on 11/19/2018 at 16:49 Approved by: Wendy Hutchinson M.D. on 11/19/2018 at 16:52
[2018-11-18 17:59] LABS: Add Manual Diff / Slide Review NO; Basophils Absolute Auto 0 /uL (0-100); Basophils Percent Auto 0.2 % (0-2); Eosinophils Absolute Auto 100 /uL (0-450); Hematocrit 42.5 % (36-46); Lymphocytes Absolute Auto 1300 /uL (1100-4500); Lymphocytes Percent Auto 20.2 % (25-40); Mean Corpuscular Hemoglobin 27.8 PG (26-34); Mean Corpuscular Volume 84.3 fL (80-100); Monocytes Absolute Auto 400 /uL (0-900); Monocytes Percent Auto 6.6 % (3-14); Neutrophils Absolute Auto 4600 /uL (1500-7000); Platelet Count 187 X10^3/uL (150-400); Red Blood Cell Count 5.05 X10^6/uL (4.0-5.2); Red Cell Distribution Width 13.3 % (11.6-14.8); White Blood Cell Count 6.4 X10^3/uL (4.5-11.0)
[2018-11-18 18:13] LABS: Alanine Aminotransferase 46 IU/L (9-52); Albumin 4.3 g/dL (3.5-5.0); Albumin Globulin Ratio 1.4 (1.0-2.8); Alkaline Phosphatase 73 U/L (38-126); Aspartate Aminotransferase 32 IU/L (14-36); Bilirubin Total 0.4 mg/dL (0.2-1.3); Blood Urea Nitrogen 9 mg/dL (7-17); Calcium 8.9 mg/dL (8.4-10.2); Carbon Dioxide 28 mmol/L (22-32); Chloride 104 mmol/L (98-107); Estimated Glomerular Filt Rate > 60.0 mL/min (>60); Globulin 3.1 g/dL (1.7-4.1); Glucose 107 mg/dL (70-100); HEMOLYSIS < 15 (0-50); Potassium 4.7 mmol/L (3.4-5.1); Sodium 142 mmol/L (137-145); Total Protein 7.4 g/dL (6.3-8.2)
== END ==
PROVIDERS: PCP Family Medicine; Visit Provider Family Medicine
DX: R14.0 Abdominal distension (gaseous) (principal); R16.1 Splenomegaly, not elsewhere classified
CPT/HCPCS: 36415; 74018; 80053; 85025

== ENCOUNTER 2018-11-19 06:33 | Emergency (ER) | payer OTHER, MEDICAID, SELFPAY ==
[2018-11-19 07:04] VITALS: BP 171/112; PULSE 100; RESP 18; TEMP 37; O2SAT 100; BMI 30.9
[2018-11-19] MEDS: MORPHINE 5 MG/ML INJ 4 MG IV (07:14)
[2018-11-19] MEDS: SODIUM CHLORIDE 0.9% 1,000 ML 1000 ML IV (07:14)
[2018-11-19 07:18] LABS: Add Manual Diff / Slide Review NO; Basophils Absolute Auto 0 /uL (0-100); Basophils Percent Auto 0.6 % (0-2); Eosinophils Absolute Auto 100 /uL (0-450); Eosinophils Percent Auto 1.1 % (2-4); Hematocrit 41.6 % (36-46); Hemoglobin 14.2 g/dL (12.0-16.0); Lymphocytes Absolute Auto 1900 /uL (1100-4500); Lymphocytes Percent Auto 27.6 % (25-40); Mean Corpuscular HGB Conc 34.1 % (30-36); Mean Corpuscular Hemoglobin 28.4 PG (26-34); Mean Corpuscular Volume 83.2 fL (80-100); Monocytes Absolute Auto 400 /uL (0-900); Monocytes Percent Auto 6.2 % (3-14); Neutrophils Absolute Auto 4500 /uL (1500-7000); Neutrophils Percent Auto 64.5 % (50-75); Platelet Count 199 X10^3/uL (150-400); Red Blood Cell Count 4.99 X10^6/uL (4.0-5.2); Red Cell Distribution Width 13.4 % (11.6-14.8); White Blood Cell Count 6.9 X10^3/uL (4.5-11.0)
[2018-11-19 07:26] LABS: Alanine Aminotransferase 39 IU/L (9-52); Albumin 4.2 g/dL (3.5-5.0); Albumin Globulin Ratio 1.2 (1.0-2.8); Alkaline Phosphatase 74 U/L (38-126); Aspartate Aminotransferase 25 IU/L (14-36); BUN Creatinine Ratio 11.7 (6-22); Bilirubin Total 0.4 mg/dL (0.2-1.3); Blood Urea Nitrogen 7 mg/dL (7-17); Carbon Dioxide 23 mmol/L (22-32); Chloride 103 mmol/L (98-107); Estimated Glomerular Filt Rate > 60.0 mL/min (>60); Globulin 3.4 g/dL (1.7-4.1); Glucose 139 mg/dL (70-100); HEMOLYSIS < 15 (0-50); Lipase 34 U/L (23-300); Potassium 3.8 mmol/L (3.4-5.1); Sodium 138 mmol/L (137-145); Total Protein 7.6 g/dL (6.3-8.2)
--- NOTE | 2018-11-19 07:43 | DI.RAD.S_ITS ---
PROCEDURE: XR ACUTE ABDOMEN SERIES INDICATIONS: Abdominal pain, decreased BM TECHNIQUE: One view chest and two views of the abdomen were acquired. COMPARISON: [facility], CR, XR ABDOMEN 1V, 11/18/2018, 16:51. [facility], CT, CT ABDOMEN PELVIS W CON, 11/15/2018, 18:47. FINDINGS: Surgical changes and devices: Discectomy and surgical fusion at L4-L5. Chest: Lungs are clear. Heart size is normal. No pleural effusions. No pneumoperitoneum. Abdomen: Bowel gas pattern is nonspecific with abundant colonic gas and relative paucity of small bowel gas. A few air-fluid levels noted in the right lower quadrant. Small calcific foci project into kidneys are consistent with renal stones seen on CT. Visualized solid organ contours appear normal. Bones: No suspicious bony lesions. IMPRESSION: 1. Nonspecific bowel gas pattern. 2. Small renal calculi. Dictated by: Wendy Hutchinson M.D. on 11/19/2018 at 8:27 Approved by: Wendy Hutchinson M.D. on 11/19/2018 at 8:30
[2018-11-19] MEDS: ONDANSETRON 4 MG/2 ML INJ IV (07:51)
--- NOTE | 2018-11-19 08:21 | ED.FEMALEGU ---
HPI - Female Genitourinary General Chief complaint: Urogenital-Female Stated complaint: kidney problem, pain Time Seen by Provider: 11/19/18 06:55 Source: patient Mode of arrival: ambulatory Limitations: no limitations History of Present Illness HPI Narrative: 38F non smoker with history of kidney stones and recent visit for abdominal pain presents with complaint of severe crampy, colicky abdominal pain. She has had nausea but no vomiting and difficulty with bowel movements. She had extensive workup and images noting little more than significant stool burden and nonspecific gas pattern a few days ago. She has made multiple attempts at using stool softeners and actually had a rather large bowel movement at home a day or 2 ago. She has had no fever or chills. She denies dysuria or frequency. Her pain comes and go in waves, she finds it difficult to find position of comfort. It hurts sometimes in her upper regions sometimes on the left sometimes Onset (ago): hour(s) Location: other Female Urogenital Radiation: Periumbilical Severity: severe Quality: Aching, Burning and Cramping Duration: intermittent and progressively worsening Relieving factors: none Exacerbating factors: none Patient : No Related Data Home Medications Medication Instructions Recorded Confirmed sertraline [Zoloft] 150 mg PO QPM 08/19/18 11/04/18 spironolactone 100 mg PO DAILY 08/19/18 11/04/18 Previous Rx's Medication Instructions Recorded meloxicam [Mobic] 7.5 mg PO DAILY PRN #20 tab 08/19/18 ondansetron 4 mg PO Q6-8H PRN #10 tab 08/19/18 oxycodone-acetaminophen 1 tab PO Q4-6H PRN #10 tab 08/19/18 lorazepam 0.5 mg tablet 0.5 mg PO BIDP PRN #10 tab 10/27/18 sumatriptan 25 mg tablet 25 mg PO Q2H PRN #7 tab 11/04/18 magnesium citrate [Citrate of 120 ml PO DAILY PRN #296 ml 11/15/18 Magnesia] Allergies Allergy/AdvReac Type Severity Reaction Status Date / Time hydrocodone [HYDROCODONE] AdvReac Unknown ITCHING Verified 11/15/18 17:16 Review of Systems Constitutional Denies chills, Denies fever(s), Denies lethargy and Denies weakness Eyes Denies change in vision, Denies eye discharge, Denies irritation and Denies loss of vision ENT Ears, Nose, Mouth, and Throat: Denies change in voice, Denies neck pain and Denies sore throat Cardiovascular Denies chest pain, Denies irregular heart rhythm, Denies lightheadedness, Denies palpitations, Denies dyspnea, Denies dyspnea on exertion and Denies orthopnea Respiratory Denies cough, Denies dyspnea, Denies dyspnea on exertion and Denies wheezing Gastrointestinal Gastrointestinal: Reports abdominal pain, Denies change in bowel habits, Denies diarrhea, Denies nausea and Denies vomiting Genitourinary Denies hematuria, Denies flank pain, Denies urinary incontinence and Denies urinary urgency Musculoskeletal Denies neck pain Integumentary/Breasts Denies pruritus, Denies erythema, Denies rash and Denies wounds Neurologic Denies confusion, Denies loss of vision and Denies weakness Psychiatric Denies anxiety, Denies confusion, Denies depression, Denies homicidal ideation and Denies suicidal ideation Endocrine Denies palpitations Hematologic/Lymphatic Denies easy bruising Allergic/Immunologic Denies wheezing [facility] Medical History Kidney stones (Acute) Anxiety (Chronic ~1997) Depression (Chronic ~1997) Irregular periods/menstrual cycles (Chronic ~1997) Ovarian cyst (Chronic ~1997) Surgical History Anesthesia (Resolved) History of back surgery (Resolved) History of third molar tooth extraction (Resolved) Status post delivery (Resolved 04/23/02) Status post delivery (Resolved 03/20/05) Status post delivery (Resolved 2016) Social History marital status: unmarried,living together number of children: 3 household members: family lives independently: Yes education level: college occupational status: employed Smoking Status: Never smoker alcohol intake: current substance use type: does not use Social History marital status: unmarried,living together number of children: 3 household members: family lives independently: Yes education level: college occupational status: employed Smoking Status: Never smoker alcohol intake: current substance use type: does not use Exam Narrative Exam Narrative: GENERAL: 38-year-old female, severely uncomfortable, rocking back and forth on the cart HEAD: Atraumatic. Normocephalic. No temporal or scalp tenderness. EYES: Pupils equal round and reactive. Extraocular motions intact. No scleral icterus. No injection or drainage. ENT: Nose without bleeding, purulent drainage or septal hematoma. Throat without erythema, tonsillar hypertrophy or exudate. Uvula midline. Airway patent. NECK: Trachea midline. No JVD or lymphadenopathy. Supple, nontender, no meningeal signs. CARDIOVASCULAR: Regular rate and rhythm without murmurs, gallops, or rubs. RESPIRATORY: Clear to auscultation. Breath sounds equal bilaterally. No wheezes, rales, or rhonchi. GASTROINTESTINAL: Abdomen soft, generalized tenderness with decreased bowel sounds, nondistended. No hepato-splenomegaly, or palpable masses. No guarding. EXTREMITIES: No clubbing, cyanosis, or edema. No joint tenderness, effusion, or edema noted. BACK: Nontender without deformity or crepitance. No flank tenderness. NEURO: AOx3. SKIN: No rash or erythema. Initial Vital Signs Initial Vital Signs: Vital Signs Temperature 98.6 F 11/19/18 07:04 Pulse Rate 100 H 11/19/18 07:04 Respiratory Rate 18 11/19/18 07:04 Blood Pressure 171/112 H 11/19/18 07:04 Pulse Oximetry 100 11/19/18 07:04 Course Orders Ordered: Discontinued Medications Sodium Chloride (Normal Saline 0.9%) 1,000 mls @ 1,000 mls/hr IV BOLUS ONE Stop: 11/19/18 07:43 Last Infusion: 11/19/18 08:28 Dose: 0 mls/hr Admin: 11/19/18 07:14 Dose: 1,000 mls/hr Ketorolac Tromethamine (Toradol) 15 mg IV NOW ONE Stop: 11/19/18 09:13 Last Admin: 11/19/18 09:16 Dose: 15 mg Morphine Sulfate (Morphine Sulfate) 4 mg IV NOW ONE Stop: 11/19/18 06:55 Last Admin: 11/19/18 07:14 Dose: 4 mg Ondansetron HCl (Zofran) 4 mg IV NOW ONE Stop: 11/19/18 07:50 Last Admin: 11/19/18 07:51 Dose: 4 mg Vital Signs - 8 hr 11/19/18 07:04 Temperature 98.6 F Pulse Rate 100 H Respiratory Rate 18 Blood Pressure 171/112 H Pulse Oximetry 100 MDM - Female Genitourinary Lab Data Result diagrams: 11/19/18 06:55 11/19/18 06:55 Lab Results 11/19/18 11/19/18 Range/Units 06:55 06:55 WBC 6.9 (4.5-11.0) X10^3/uL RBC 4.99 (4.0-5.2) X10^6/uL Hgb 14.2 (12.0-16.0) g/dL Hct 41.6 (36-46) % MCV 83.2 (80-100) fL MCH 28.4 (26-34) PG MCHC 34.1 (30-36) % RDW 13.4 (11.6-14.8) % Plt Count 199 (150-400) X10^3/uL Neut % (Auto) 64.5 (50-75) % Lymph % (Auto) 27.6 (25-40) % [place] % (Auto) 6.2 (3-14) % Eos % (Auto) 1.1 L (2-4) % Baso % (Auto) 0.6 (0-2) % Neut # (Auto) 4500 (8658-6131) /uL Lymph # (Auto) 1900 (8672-1262) /uL [place] # (Auto) 400 (0-900) /uL Eos # (Auto) 100 (0-450) /uL Baso # (Auto) 0 (0-100) /uL Sodium 138 (137-145) mmol/L Potassium 3.8 (3.4-5.1) mmol/L Chloride 103 (98-107) mmol/L Carbon Dioxide 23 (22-32) mmol/L BUN 7 (7-17) mg/dL Creatinine 0.60 (0.52-1.04) mg/dL Estimated GFR > 60.0 (>60) mL/min BUN/Creatinine Ratio 11.7 (6-22) Glucose 139 H (70-100) mg/dL Calcium 9.0 (8.4-10.2) mg/dL Total Bilirubin 0.4 (0.2-1.3) mg/dL AST 25 (14-36) IU/L ALT 39 (9-52) IU/L Alkaline Phosphatase 74 (38-126) U/L Total Protein 7.6 (6.3-8.2) g/dL Albumin 4.2 (3.5-5.0) g/dL Globulin 3.4 (1.7-4.1) g/dL Albumin/Globulin Ratio 1.2 (1.0-2.8) Lipase 34 (23-300) U/L Point of Care Testing Test Results Negative Urine Dip Bedside Urine Glucose Negative Bedside Urine Bilirubin - Negative Bedside Urine Ketone - Negative Urine Specific [place] 1.015 Bedside Urine pH 7 Bedside Urine Protein +/- 15 Bedside Urine Urobilinogen - Negative Bedside Urine Nitrite - Negative Bedside Urine Leukocytes - Negative Esterase Imaging Data Abdominal x-ray: Radiologist's impression: [address] [address] XRay Report Signed Patient: Gaviota Morales LMR#: [id number] : 1980Acct:[id number] Age/Sex: 38 / FDate of Service: 11/19/18 Loc: ED Accession Number: [id number] Procedure: XR acute abdomen series Ordering Provider: Atilio Miller D.O. PROCEDURE: XR ACUTE ABDOMEN SERIES INDICATIONS: Abdominal pain, decreased BM TECHNIQUE: One view chest and two views of the abdomen were acquired. COMPARISON: [facility], CR, XR ABDOMEN 1V, 11/18/2018, 16:51. [facility], CT, CT ABDOMEN PELVIS W CON, 11/15/2018, 18:47. FINDINGS: Surgical changes and devices: Discectomy and surgical fusion at L4-L5. Chest: Lungs are clear. Heart size is normal. No pleural effusions. No pneumoperitoneum. Abdomen: Bowel gas pattern is nonspecific with abundant colonic gas and relative paucity of small bowel gas. A few air-fluid levels noted in the right lower quadrant. Small calcific foci project into kidneys are consistent with renal stones seen on CT. Visualized solid organ contours appear normal. Bones: No suspicious bony lesions. IMPRESSION: 1. Nonspecific bowel gas pattern. 2. Small renal calculi. Dictated by: Wendy Hutchinson M.D. on 11/19/2018 at 8:27 Approved by: Wendy Hutchinson M.D. on 11/19/2018 at 8:30 [facility] Narrative Medical decision making narrative: 38-year-old female with chief complaint of significant constipation, difficulty passing gas and crampy colicky abdominal pain. She feels much better after enema and requests discharge to finish the process at home. We considered bowel obstruction, kidney stones and other diagnoses but these are thought less likely given her exam, complaints and response to therapies. Discharge Plan Departure Patient Disposition: Home Clinical Impression: Abdominal pain Discharge Date/Time: 11/19/18 10:00 Interventions: ED Discharge Assessment Last Done: 11/19/18 10:17 Instructions: Acute Abdominal Pain Activity Restrictions/Additional Instructions: 1. Stay active 2. Return to your normal diet as much as possible 3. Stay well hydrated 4. A combination of over the counter laxitives including Dulcolax (stimulant laxative) Magnesium Citrate (pulls water into stool) Colace (stool softener) Prescriptions: No Action lorazepam 0.5 mg tablet 0.5 mg PO BIDP PRN (Reason: anxiety) Qty: 10 RF: 0 sumatriptan succinate 25 mg tablet 25 mg PO Q2H PRN (Reason: migraine headache) Qty: 7 RF: 0 sertraline [Zoloft] 100 mg tablet 150 mg PO QPM RF: 0 spironolactone 100 mg tablet 100 mg PO DAILY RF: 0 meloxicam [Mobic] 7.5 mg tablet 7.5 mg PO DAILY PRN (Reason: pain) Qty: 20 RF: 0 oxycodone-acetaminophen 5-325 mg tablet 1 tab PO Q4-6H PRN (Reason: pain) Qty: 10 RF: 0 ondansetron 4 mg tablet,disintegrating 4 mg PO Q6-8H PRN (Reason: nausea and vomiting) Qty: 10 RF: 0 magnesium citrate [Citrate of Magnesia] solution 120 ml PO DAILY PRN (Reason: constipation) Qty: 296 RF: 0 Stand Alone Forms: Against Medical Advice
[2018-11-19] MEDS: KETOROLAC 60 MG/2 ML VIAL 15 MG IV (09:16)
--- NOTE | 2018-11-19 19:56 | ED_ITS ---
HPI - Female Genitourinary General Chief complaint: Urogenital-Female Stated complaint: kidney problem, pain Time Seen by Provider: 11/19/18 06:55 Source: patient Mode of arrival: ambulatory Limitations: no limitations History of Present Illness HPI Narrative: 38F non smoker with history of kidney stones and recent visit for abdominal pain presents with complaint of severe crampy, colicky abdominal pain. She has had nausea but no vomiting and difficulty with bowel movements. She had extensive workup and images noting little more than significant stool burden and nonspecific gas pattern a few days ago. She has made multiple attempts at using stool softeners and actually had a rather large bowel movement at home a day or 2 ago. She has had no fever or chills. She denies dysuria or frequency. Her pain comes and go in waves, she finds it difficult to find position of comfort. It hurts sometimes in her upper regions sometimes on the left sometimes Onset (ago): hour(s) Location: other Female Urogenital Radiation: Periumbilical Severity: severe Quality: Aching, Burning and Cramping Duration: intermittent and progressively worsening Relieving factors: none Exacerbating factors: none Patient : No Related Data Home Medications Medication Instructions Recorded Confirmed sertraline [Zoloft] 150 mg PO QPM 08/19/18 11/04/18 spironolactone 100 mg PO DAILY 08/19/18 11/04/18 Previous Rx's Medication Instructions Recorded meloxicam [Mobic] 7.5 mg PO DAILY PRN #20 tab 08/19/18 ondansetron 4 mg PO Q6-8H PRN #10 tab 08/19/18 oxycodone-acetaminophen 1 tab PO Q4-6H PRN #10 tab 08/19/18 lorazepam 0.5 mg tablet 0.5 mg PO BIDP PRN #10 tab 10/27/18 sumatriptan 25 mg tablet 25 mg PO Q2H PRN #7 tab 11/04/18 magnesium citrate [Citrate of 120 ml PO DAILY PRN #296 ml 11/15/18 Magnesia] Allergies Allergy/AdvReac Type Severity Reaction Status Date / Time hydrocodone [HYDROCODONE] AdvReac Unknown ITCHING Verified 11/15/18 17:16 Review of Systems Constitutional Denies chills, Denies fever(s), Denies lethargy and Denies weakness Eyes Denies change in vision, Denies eye discharge, Denies irritation and Denies loss of vision ENT Ears, Nose, Mouth, and Throat: Denies change in voice, Denies neck pain and Denies sore throat Cardiovascular Denies chest pain, Denies irregular heart rhythm, Denies lightheadedness, Denies palpitations, Denies dyspnea, Denies dyspnea on exertion and Denies orthopnea Respiratory Denies cough, Denies dyspnea, Denies dyspnea on exertion and Denies wheezing Gastrointestinal Gastrointestinal: Reports abdominal pain, Denies change in bowel habits, Denies diarrhea, Denies nausea and Denies vomiting Genitourinary Denies hematuria, Denies flank pain, Denies urinary incontinence and Denies urinary urgency Musculoskeletal Denies neck pain Integumentary/Breasts Denies pruritus, Denies erythema, Denies rash and Denies wounds Neurologic Denies confusion, Denies loss of vision and Denies weakness Psychiatric Denies anxiety, Denies confusion, Denies depression, Denies homicidal ideation and Denies suicidal ideation Endocrine Denies palpitations Hematologic/Lymphatic Denies easy bruising Allergic/Immunologic Denies wheezing [facility] Medical History Kidney stones (Acute) Anxiety (Chronic ~1997) Depression (Chronic ~1997) Irregular periods/menstrual cycles (Chronic ~1997) Ovarian cyst (Chronic ~1997) Surgical History Anesthesia (Resolved) History of back surgery (Resolved) History of third molar tooth extraction (Resolved) Status post delivery (Resolved 04/23/02) Status post delivery (Resolved 03/20/05) Status post delivery (Resolved 2016) Social History marital status: unmarried,living together number of children: 3 household members: family lives independently: Yes education level: college occupational status: employed Smoking Status: Never smoker alcohol intake: current substance use type: does not use Social History marital status: unmarried,living together number of children: 3 household members: family lives independently: Yes education level: college occupational status: employed Smoking Status: Never smoker alcohol intake: current substance use type: does not use Exam Narrative Exam Narrative: GENERAL: 38-year-old female, severely uncomfortable, rocking back and forth on the cart HEAD: Atraumatic. Normocephalic. No temporal or scalp tenderness. EYES: Pupils equal round and reactive. Extraocular motions intact. No scleral icterus. No injection or drainage. ENT: Nose without bleeding, purulent drainage or septal hematoma. Throat without erythema, tonsillar hypertrophy or exudate. Uvula midline. Airway patent. NECK: Trachea midline. No JVD or lymphadenopathy. Supple, nontender, no meningeal signs. CARDIOVASCULAR: Regular rate and rhythm without murmurs, gallops, or rubs. RESPIRATORY: Clear to auscultation. Breath sounds equal bilaterally. No wheezes, rales, or rhonchi. GASTROINTESTINAL: Abdomen soft, generalized tenderness with decreased bowel sounds, nondistended. No hepato-splenomegaly, or palpable masses. No guarding. EXTREMITIES: No clubbing, cyanosis, or edema. No joint tenderness, effusion, or edema noted. BACK: Nontender without deformity or crepitance. No flank tenderness. NEURO: AOx3. SKIN: No rash or erythema. Initial Vital Signs Initial Vital Signs: Vital Signs Temperature 98.6 F 11/19/18 07:04 Pulse Rate 100 H 11/19/18 07:04 Respiratory Rate 18 11/19/18 07:04 Blood Pressure 171/112 H 11/19/18 07:04 Pulse Oximetry 100 11/19/18 07:04 Course Orders Ordered: Discontinued Medications Sodium Chloride (Normal Saline 0.9%) 1,000 mls @ 1,000 mls/hr IV BOLUS ONE Stop: 11/19/18 07:43 Last Infusion: 11/19/18 08:28 Dose: 0 mls/hr Admin: 11/19/18 07:14 Dose: 1,000 mls/hr Ketorolac Tromethamine (Toradol) 15 mg IV NOW ONE Stop: 11/19/18 09:13 Last Admin: 11/19/18 09:16 Dose: 15 mg Morphine Sulfate (Morphine Sulfate) 4 mg IV NOW ONE Stop: 11/19/18 06:55 Last Admin: 11/19/18 07:14 Dose: 4 mg Ondansetron HCl (Zofran) 4 mg IV NOW ONE Stop: 11/19/18 07:50 Last Admin: 11/19/18 07:51 Dose: 4 mg Vital Signs - 8 hr 11/19/18 07:04 Temperature 98.6 F Pulse Rate 100 H Respiratory Rate 18 Blood Pressure 171/112 H Pulse Oximetry 100 MDM - Female Genitourinary Lab Data Result diagrams: 11/19/18 06:55 11/19/18 06:55 Lab Results 11/19/18 11/19/18 Range/Units 06:55 06:55 WBC 6.9 (4.5-11.0) X10^3/uL RBC 4.99 (4.0-5.2) X10^6/uL Hgb 14.2 (12.0-16.0) g/dL Hct 41.6 (36-46) % MCV 83.2 (80-100) fL MCH 28.4 (26-34) PG MCHC 34.1 (30-36) % RDW 13.4 (11.6-14.8) % Plt Count 199 (150-400) X10^3/uL Neut % (Auto) 64.5 (50-75) % Lymph % (Auto) 27.6 (25-40) % [place] % (Auto) 6.2 (3-14) % Eos % (Auto) 1.1 L (2-4) % Baso % (Auto) 0.6 (0-2) % Neut # (Auto) 4500 (3490-8426) /uL Lymph # (Auto) 1900 (1609-8290) /uL [place] # (Auto) 400 (0-900) /uL Eos # (Auto) 100 (0-450) /uL Baso # (Auto) 0 (0-100) /uL Sodium 138 (137-145) mmol/L Potassium 3.8 (3.4-5.1) mmol/L Chloride 103 (98-107) mmol/L Carbon Dioxide 23 (22-32) mmol/L BUN 7 (7-17) mg/dL Creatinine 0.60 (0.52-1.04) mg/dL Estimated GFR > 60.0 (>60) mL/min BUN/Creatinine Ratio 11.7 (6-22) Glucose 139 H (70-100) mg/dL Calcium 9.0 (8.4-10.2) mg/dL Total Bilirubin 0.4 (0.2-1.3) mg/dL AST 25 (14-36) IU/L ALT 39 (9-52) IU/L Alkaline Phosphatase 74 (38-126) U/L Total Protein 7.6 (6.3-8.2) g/dL Albumin 4.2 (3.5-5.0) g/dL Globulin 3.4 (1.7-4.1) g/dL Albumin/Globulin Ratio 1.2 (1.0-2.8) Lipase 34 (23-300) U/L Point of Care Testing Test Results Negative Urine Dip Bedside Urine Glucose Negative Bedside Urine Bilirubin - Negative Bedside Urine Ketone - Negative Urine Specific [place] 1.015 Bedside Urine pH 7 Bedside Urine Protein +/- 15 Bedside Urine Urobilinogen - Negative Bedside Urine Nitrite - Negative Bedside Urine Leukocytes - Negative Esterase Imaging Data Abdominal x-ray: Radiologist's impression: [address] [address] XRay Report Signed Patient: Gaviota Morales LMR#: [id number] : 1980Acct:[id number] Age/Sex: 38 / FDate of Service: 11/19/18 Loc: ED Accession Number: [id number] Procedure: XR acute abdomen series Ordering Provider: Atilio Miller D.O. PROCEDURE: XR ACUTE ABDOMEN SERIES INDICATIONS: Abdominal pain, decreased BM TECHNIQUE: One view chest and two views of the abdomen were acquired. COMPARISON: [facility], CR, XR ABDOMEN 1V, 11/18/2018, 16:51. [facility], CT, CT ABDOMEN PELVIS W CON, 11/15/2018, 18:47. FINDINGS: Surgical changes and devices: Discectomy and surgical fusion at L4-L5. Chest: Lungs are clear. Heart size is normal. No pleural effusions. No pneumoperitoneum. Abdomen: Bowel gas pattern is nonspecific with abundant colonic gas and relative paucity of small bowel gas. A few air-fluid levels noted in the right lower quadrant. Small calcific foci project into kidneys are consistent with renal stones seen on CT. Visualized solid organ contours appear normal. Bones: No suspicious bony lesions. IMPRESSION: 1. Nonspecific bowel gas pattern. 2. Small renal calculi. Dictated by: Wendy Hutchinson M.D. on 11/19/2018 at 8:27 Approved by: Wendy Hutchinson M.D. on 11/19/2018 at 8:30 [facility] Narrative Medical decision making narrative: 38-year-old female with chief complaint of significant constipation, difficulty passing gas and crampy colicky abdominal pain. She feels much better after enema and requests discharge to finish the process at home. We considered bowel obstruction, kidney stones and other diagnoses but these are thought less likely given her exam, complaints and response to therapies. Discharge Plan Departure Patient Disposition: Home Clinical Impression: Abdominal pain Discharge Date/Time: 11/19/18 10:00 Interventions: ED Discharge Assessment Last Done: 11/19/18 10:17 Instructions: Acute Abdominal Pain Activity Restrictions/Additional Instructions: 1. Stay active 2. Return to your normal diet as much as possible 3. Stay well hydrated 4. A combination of over the counter laxitives including Dulcolax (stimulant laxative) Magnesium Citrate (pulls water into stool) Colace (stool softener) Prescriptions: No Action lorazepam 0.5 mg tablet 0.5 mg PO BIDP PRN (Reason: anxiety) Qty: 10 RF: 0 sumatriptan succinate 25 mg tablet 25 mg PO Q2H PRN (Reason: migraine headache) Qty: 7 RF: 0 sertraline [Zoloft] 100 mg tablet 150 mg PO QPM RF: 0 spironolactone 100 mg tablet 100 mg PO DAILY RF: 0 meloxicam [Mobic] 7.5 mg tablet 7.5 mg PO DAILY PRN (Reason: pain) Qty: 20 RF: 0 oxycodone-acetaminophen 5-325 mg tablet 1 tab PO Q4-6H PRN (Reason: pain) Qty: 10 RF: 0 ondansetron 4 mg tablet,disintegrating 4 mg PO Q6-8H PRN (Reason: nausea and vomiting) Qty: 10 RF: 0 magnesium citrate [Citrate of Magnesia] solution 120 ml PO DAILY PRN (Reason: constipation) Qty: 296 RF: 0 Stand Alone Forms: Against Medical Advice
== END 2018-11-19 10:00 | disposition home or self-care (01) ==
PROVIDERS: Emergency Medicine; Emergency Provider Emergency Medicine; PCP Family Medicine
DX: R10.9 Unspecified abdominal pain (principal)
CPT/HCPCS: 36591; 74022; 80053; 81003; 81025; 83690; 85025; 96361; 96374; 96375; 99283; 99284; J1885; J2270; J2405

== ENCOUNTER → 2019-10-09 15:01 | Outpatient (CLI) | payer OTHER, MEDICAID, SELFPAY ==
[2019-10-09 15:26] LABS: Add Manual Diff / Slide Review NO; Basophils Absolute Auto 100 /uL (0-100); Basophils Percent Auto 0.9 % (0-2); Eosinophils Absolute Auto 0 /uL (0-450); Eosinophils Percent Auto 0.5 % (2-4); Hematocrit 40.9 % (36-46); Hemoglobin 14.3 g/dL (12.0-16.0); Lymphocytes Absolute Auto 2100 /uL (1100-4500); Lymphocytes Percent Auto 22.1 % (25-40); Mean Corpuscular HGB Conc 34.8 % (30-36); Mean Corpuscular Hemoglobin 28.9 PG (26-34); Monocytes Absolute Auto 400 /uL (0-900); Neutrophils Absolute Auto 6900 /uL (1500-7000); Neutrophils Percent Auto 72.5 % (50-75); Platelet Count 204 X10^3/uL (150-400); Red Blood Cell Count 4.93 X10^6/uL (4.0-5.2); Red Cell Distribution Width 13.5 % (11.6-14.8); White Blood Cell Count 9.6 X10^3/uL (4.5-11.0)
[2019-10-09 15:45] LABS: Alanine Aminotransferase 17 IU/L (<35); Albumin 4.5 g/dL (3.5-5.0); Albumin Globulin Ratio 1.4 (1.0-2.8); Alkaline Phosphatase 55 U/L (38-126); Aspartate Aminotransferase 18 IU/L (14-36); Bilirubin Total 0.4 mg/dL (0.2-1.3); Blood Urea Nitrogen 12 mg/dL (7-17); Calcium 9.9 mg/dL (8.4-10.2); Carbon Dioxide 24 mmol/L (22-32); Chloride 108 mmol/L (98-107); Estimated Glomerular Filt Rate > 60.0 mL/min (>60); Globulin 3.2 g/dL (1.7-4.1); Glucose 112 mg/dL (70-100); HEMOLYSIS < 15 (0-50); Potassium 4.7 mmol/L (3.4-5.1); Sodium 142 mmol/L (137-145); Total Protein 7.7 g/dL (6.3-8.2)
[2019-10-09 16:15] LABS: TSH w/ Reflex to FT4 2.12 uIU/mL (0.47-4.68)
== END ==
PROVIDERS: PCP Family Medicine; Referring Provider Family Medicine; Visit Provider Family Medicine
DX: E28.2 Polycystic ovarian syndrome (principal); E66.9 Obesity, unspecified; R53.83 Other fatigue
CPT/HCPCS: 36415; 80053; 83036; 84443; 85025

== ENCOUNTER → 2020-03-17 13:42 | Outpatient (CLI) | payer OTHER, MEDICAID, SELFPAY | PROVIDERS: PCP Family Medicine; Visit Provider Family Medicine | DX: E66.9 Obesity, unspecified (principal); Z79.899 Other long term (current) drug therapy | CPT/HCPCS: 80324 ==

== ENCOUNTER 2020-11-02 10:51 | Emergency (ER) | payer OTHER, MEDICAID, SELFPAY ==
[2020-11-02 11:00] VITALS: BP 166/91; PULSE 89; RESP 18; O2SAT 98; BMI 30.7
--- NOTE | 2020-11-02 12:07 | ED_ITS ---
HPI - Skin/Abscess/Foreign Bdy General Chief complaint: Skin/Abscess/Foreign Body Stated complaint: bartholin cyst x2 days Time Seen by Provider: 11/02/20 12:00 Source: patient Mode of arrival: Ambulatory Limitations: no limitations History of Present Illness HPI narrative: Patient is a 40-year-old female who presents with vaginal cyst on the left side. She has a history of labial cyst. She states that she noticed small area yesterday did not think much of it but today it is at bigger and exquisitely tender. She denies any fevers chills or vaginal discharge. No history of bartholin cyst. complaint: abscess/boil Onset (ago): day(s) (1) Location: genitals Severity: severe Quality: sharp Related Data Home Medications Medication Instructions Recorded Confirmed spironolactone 100 mg PO DAILY 08/19/18 08/18/20 Previous Rx's Medication Instructions Recorded sumatriptan succinate 25 mg tablet 25 mg PO Q2H PRN #7 tab 01/14/19 drospirenone 3 mg-ethinyl 1 tab PO DAILY #84 tab 02/11/20 estradiol 0.02 mg tablet lorazepam 0.5 mg tablet See Rx Instructions .ROUTE 08/01/20 .COMPLEX #20 tab phentermine 15 mg capsule 15 mg PO DAILY #30 cap 08/18/20 buspirone 15 mg tablet 15 mg PO BID #60 tab 09/05/20 fluconazole 150 mg tablet 150 mg PO Q3D #2 tab 09/06/20 minocycline 50 mg capsule 50 mg PO BID #60 cap 09/06/20 ondansetron 4 mg disintegrating 4 mg PO Q8H PRN #30 tab 09/06/20 tablet bupropion HCl 450 mg 24 hr tablet, 450 mg PO QAM #30 tab 10/04/20 extended release fluconazole [Diflucan] 200 mg PO DAILY #1 tab 11/02/20 sulfamethoxazole-trimethoprim 1 tab PO BID 7 Days #14 tab 11/02/20 [Bactrim DS] Allergies Allergy/AdvReac Type Severity Reaction Status Date / Time hydrocodone [HYDROCODONE] AdvReac Unknown ITCHING Verified 08/18/20 10:49 Review of Systems Review of Systems Narrative: GENERAL: Denies chills,fever HEENT: Denies throat pain RESPIRATORY: Denies dyspnea, cough, wheezing CARDIOVASCULAR: Denies chest pain, palpitations GASTROINTESTINAL: Denies nausea, vomiting MUSCULOSKELETAL: Denies extremity pain, injury SKIN: See HPI NEUROLOGIC: Denies weakness, dizziness, headache, numbness 8 point review of systems is negative except for those stated above and HPI Patient History Medical History (Updated 11/02/20 @ 13:41 by Poonam Maher DO) Adult acne Anxiety (~1997) Depression (~1997) Irregular periods/menstrual cycles (~1997) Kidney stones Ovarian cyst (~1997) Surgical History Anesthesia History of back surgery History of third molar tooth extraction Status post delivery (04/23/02) Status post delivery (03/20/05) Status post delivery (2016) Social History marital status: unmarried,living together number of children: 3 household members: family lives independently: Yes education level: college occupational status: employed Smoking Status: Never smoker alcohol intake: current substance use type: does not use Smoking Status: Never smoker alcohol intake frequency: 0-2 drinks per day Substance Use Type: marijuana Exam Initial Vital Signs Initial Vital Signs: Vital Signs Pulse Rate 89 11/02/20 11:00 Respiratory Rate 18 11/02/20 11:00 Blood Pressure 166/91 H 11/02/20 11:00 Pulse Oximetry 98 11/02/20 11:00 GENERAL: Anxious 40-year-old female CARDIOVASCULAR: peripheral pulses in tact, cap refill <2 sec RESPIRATORY: No respiratory distress, speaks in full sentences without difficulty ABDOMEN: Soft, nontender, no guarding or rebound : Left labia minora cyst 1 x 2 cm exquisitely tender no erythema or induration, not in bartholin location EXTREMITIES: Normal range of motion, no clubbing or edema. Neurovascularly intact NEUROLOGICAL: Cranial nerves II through XII grossly intact. Normal gait and speech. SKIN: Warm, dry, no petechiae, no rashes or lesions. Procedures Abscess I/D I&D #1: Site: other (labia) Side (if applicable): left Sedation/analgesia: other (morphine 4mg IM and ativan 1mg PO) Local Anesthetic: other anesthetic (topical) Technique: incised with #11 blade Amount of fluid expressed (mL): 2 Irrigation: No Packing used?: none Complications: pain Course Orders Ordered: ED Orders 11/02/20 13:36 Wound Culture and Gram Stain Stat Discontinued Medications Lidocaine/Prilocaine (Lidocaine/Prilocaine 5 Gm) 5 gm TOP NOW ONE Stop: 11/02/20 12:22 Last Admin: 11/02/20 12:49 Dose: 5 gm Documented by: DOMINIQUE Lorazepam (Lorazepam 0.5 Mg Tablet) 1 mg PO NOW ONE Stop: 11/02/20 12:22 Last Admin: 11/02/20 12:48 Dose: 1 mg Documented by: DOMINIQUE Morphine Sulfate (Morphine 4 Mg/Ml Inj) 4 mg IM NOW ONE Stop: 11/02/20 12:22 Last Admin: 11/02/20 12:49 Dose: 4 mg Documented by: DOMINIQUE Vital Signs Vital signs: Vital Signs - 8 hr 11/02/20 11:00 11/02/20 13:00 Pulse Rate 89 85 Respiratory Rate 18 Blood Pressure 166/91 H 154/62 H Pulse Oximetry 98 97 MDM - Skin/Abscess/Foreign Bdy MDM Narrative Medical decision making narrative: Patient was extremely anxious she is given pain medication anxiety medication and topical anesthesia. She tolerated procedure extremely well. Gross pus was extracted. Culture sent, she is started on Bactrim. Discharge Plan Departure Patient Disposition: Home Clinical Impression: Abscess of labia Instructions: DI for Skin Abscess Activity Restrictions/Additional Instructions: *You have been diagnosed with labia abscess *What to do: Recommend Sitz baths, warm compresses should continue to drain but should overall have significant improvement *Continue to take medications as directed--> SENT TO [facility] IN [place] Bactrim 1 tablet twice a day for 7 days Diflucan 1 tablet were finished with antibiotics *Follow up with your primary care provider in 2-3 days *Return to ER if you should have increasing redness pain swelling fever or any new, worsening or concerning symptoms Prescriptions: New sulfamethoxazole-trimethoprim [Bactrim DS] 800-160 mg tablet 1 tab PO BID 7 Days Qty: 14 RF: 0 fluconazole [Diflucan] 200 mg tablet 200 mg PO DAILY Qty: 1 RF: 0 No Action phentermine 15 mg capsule 15 mg PO DAILY Qty: 30 RF: 0 drospirenone-ethinyl estradiol [JOSE ELIAS (28)] 3-0.02 mg tablet 1 tab PO DAILY Qty: 84 RF: 3 sumatriptan succinate 25 mg tablet 25 mg PO Q2H PRN (Reason: migraine headache) Qty: 7 RF: 1 lorazepam 0.5 mg tablet See Rx Instructions .ROUTE .COMPLEX Qty: 20 RF: 0 buspirone 15 mg tablet 15 mg PO BID Qty: 60 RF: 2 minocycline 50 mg capsule 50 mg PO BID Qty: 60 RF: 2 fluconazole 150 mg tablet 150 mg PO Q3D Qty: 2 RF: 0 ondansetron 4 mg tablet,disintegrating 4 mg PO Q8H PRN (Reason: nausea and vomiting) Qty: 30 RF: 0 bupropion HCl 450 mg tablet extended release 24 hr 450 mg PO QAM Qty: 30 RF: 2 spironolactone 100 mg tablet 100 mg PO DAILY RF: 0 Referrals: Nayeli Levi DO [Primary Care Provider] -
[2020-11-02] MEDS: LORazepam 0.5 MG TABLET 1 MG PO (12:48)
[2020-11-02] MEDS: MORPHINE 4 MG/ML INJ IM (12:49)
[2020-11-02] MEDS: LIDOCAINE/PRILOCAINE 5 GM TOP (12:49)
[2020-11-02 13:00] VITALS: BP 154/62; PULSE 85; O2SAT 97
== END 2020-11-02 14:05 | disposition home or self-care (01) ==
PROVIDERS: Emergency Provider Emergency Medicine; PCP Family Medicine
DX: N76.4 Abscess of vulva (principal)
CPT/HCPCS: 10060; 87070; 87075; 87077; 87205; 96372; 99281; 99283; J2270

== ENCOUNTER → 2021-04-10 16:39 | Outpatient (CLI) | payer OTHER, MEDICAID, SELFPAY ==
[2021-04-10 17:54] LABS: Bilirubin Urine UA NEGATIVE (NEGATIVE); Color Urine UA ORANGE; Glucose Urine UA 1+ g/dL (Negative); Ketones Urine UA TRACE (NEGATIVE); Leukocyte Esterase Urine UA TRACE (NEGATIVE); Nitrite Urine UA POSITIVE (Negative); Occult Blood Urine UA 1+ (Negative); Protein Urine UA 3+ (Negative); Specific Gravity Urine UA 1.025 (1.000-1.035)
[2021-04-10 18:01] LABS: Appearance Urine UA SL CLOUDY
[2021-04-10 18:15] LABS: Amorphous Sediment Urine 1+; Bacteria Urine Many (>30); Culture Indicated Urine Specimen Cultured; Mucus Urine 2+ (Negative); RBC Urine 5-10/HPF (0-5/HPF); Squamous Epithelial Cell Urine 1-5 /HPF (0-5/HPF); WBC Urine 5-10/HPF (0-5/HPF)
== END ==
PROVIDERS: PCP Family Medicine; Referring Provider Family Medicine; Visit Provider Family Medicine
DX: N30.00 Acute cystitis without hematuria (principal)
CPT/HCPCS: 81001; 87086

== ENCOUNTER 2021-04-11 18:47 | Emergency (ER) | payer OTHER, MEDICAID, SELFPAY ==
[2021-04-11 18:52] VITALS: BP 147/96; PULSE 99; RESP 18; O2SAT 98; BMI 27.8
[2021-04-11] MEDS: ONDANSETRON 4 MG/2 ML INJ IV (19:08)
[2021-04-11] MEDS: SODIUM CHLORIDE 0.9% 1,000 ML 1000 ML IV (19:08)
[2021-04-11] MEDS: KETOROLAC 30 MG/ML VIAL 15 MG IV (19:09)
[2021-04-11 19:31] LABS: RBC Urine None Seen (0-5/HPF)
--- NOTE | 2021-04-11 19:31 | ED_ITS ---
HPI - Female Genitourinary General Chief complaint: Urogenital-Female Stated complaint: kidney stone Time Seen by Provider: 04/11/21 19:27 Source: patient Mode of arrival: Ambulatory Limitations: no limitations History of Present Illness HPI Narrative: 40-year-old female nonsmoker with history of kidney stones prese nts with the few days of urinary symptoms including dysuria, frequency and urgency. She had given a urine sample and there was suggestion of urinary tract infection. Soon after she initiated her antibiotic she developed severe left flank pain without provocation or palliation. It does wrap around her left side a bit and feels like prior kidney stones. She has had no fever or chills. She is nauseated but denies vomiting. She denies any change in bowel habits. Related Data Previous Rx's Medication Instructions Recorded sumatriptan succinate 25 mg tablet 25 mg PO Q2H PRN #7 tab 01/14/19 drospirenone 3 mg-ethinyl 1 tab PO DAILY #84 tab 01/09/21 estradiol 0.02 mg tablet (JOSE ELIAS (28)) spironolactone 100 mg tablet 100 mg PO DAILY #30 tab 01/31/21 bupropion HCl 450 mg 24 hr tablet, 450 mg PO QAM #30 tab 03/07/21 extended release ondansetron 4 mg disintegrating See Rx Instructions .ROUTE 03/07/21 tablet .COMPLEX #30 tab lorazepam 0.5 mg tablet See Rx Instructions .ROUTE 03/24/21 .COMPLEX #20 tab buspirone 15 mg tablet 15 mg PO BID #60 tab 03/27/21 fluconazole 150 mg tablet 150 mg PO DAILY #1 tab 04/11/21 (Diflucan) hydrocodone 5 mg-acetaminophen 325 1 tab PO Q4-6H PRN #10 tab 04/11/21 mg tablet ketorolac 10 mg tablet 10 mg PO Q6H PRN #14 tab 04/11/21 nitrofurantoin 100 mg PO Q12H 5 Days #10 cap 04/11/21 monohydrate/macrocrystals 100 mg capsule (Macrobid) ondansetron 4 mg disintegrating 4 mg PO TID-QID PRN #10 tab 04/11/21 tablet tamsulosin 0.4 mg capsule (Flomax) 0.4 mg PO DAILY #20 cap 04/11/21 Allergies Allergy/AdvReac Type Severity Reaction Status Date / Time hydrocodone [HYDROCODONE] AdvReac Unknown ITCHING Verified 08/18/20 10:49 Review of Systems Review of Systems Narrative: GENERAL: Denies chills, fatigue, malaise, fever, sweats. HEENT: Denies sinus pain, ear pain, sore throat, difficulty swallowing, dizziness. RESPIRATORY: Denies dyspnea, cough, wheezing, hemoptysis, sputum. CARDIOVASCULAR: Denies chest pain, palpitations, orthopnea, edema, GASTROINTESTINAL: Denies nausea, vomiting, abdominal pain, diarrhea, constip ation, melena. : See HPI MUSCULOSKELETAL: denies weakness, joint pain, or bony pain SKIN: Denies rash, skin lesions, or other NEUROLOGIC: Denies weakness, headache, numbness, change in speech, confusion, seizures, incoordination. PSYCHIATRIC: No concerning psychosocial issues. 12 point review of systems is negative except for those stated above Patient History Medical History (Updated 04/11/21 @ 23:09 by Atilio Miller DO) Adult acne Anxiety (~1997) Depression (~1997) Irregular periods/menstrual cycles (~1997) Kidney stones Ovarian cyst (~1997) Surgical History Anesthesia History of back surgery History of third molar tooth extraction Status post delivery (04/23/02) Status post delivery (03/20/05) Status post delivery (2016) alcohol intake frequency: 0-2 drinks per day Substance Use Type: marijuana Exam Narrative Exam Narrative: GENERAL: [40] year old patient appears stated age. Well- developed patient, in mild distress. Obviously uncomfortable, pacing in her room, massaging her left flank HEAD: Atraumatic. Normocephalic. EYES: Pupils equal round and reactive. Extraocular motions intact. No scleral icterus. No injection or drainage. ENT: Nose without bleeding, purulent drainage. Throat without erythema, tonsillar hypertrophy or exudate. Airway patent. NECK: Trachea midline. Non tender CARDIOVASCULAR: Regular rate and rhythm without murmurs, gallops, or rubs. RESPIRATORY: Clear to auscultation. Breath sounds equal bilaterally. No wheezes, rales, or rhonchi. GASTROINTESTINAL: Abdomen soft, non-tender, nondistended. EXTREMITIES: No edema or joint tenderness. BACK: Nontender without deformity or crepitance. No flank tenderness. NEURO: AOx3. SKIN: No rash or erythema of visible areas Initial Vital Signs Initial Vital Signs: Vital Signs Pulse Rate 99 H 04/11/21 18:52 Respiratory Rate 18 04/11/21 18:52 Blood Pressure 147/96 H 04/11/21 18:52 Pulse Oximetry 98 04/11/21 18:52 Course Orders Ordered: ED Orders 04/11/21 19:00 CMP [Comprehensive Metabolic Panel] Stat Complete Blood Count AUTO DIFF Stat Ictotest Urine Stat Test Urine Stat Urinalysis and Microscopic Stat Urine Culture Stat 04/11/21 19:33 CT kidney ureter bladder (KUB) Stat Discontinued Medications Hydrocodone Bitart/Acetaminophen (Hydrocodone/Acet 5/325 Prepack) 1 bottle MISC SEEINSTR ONE Stop: 04/11/21 22:29 Last Admin: 04/11/21 22:44 Dose: 1 bottle Documented by: GIUSEPPE Hydromorphone HCl (Hydromorphone 1 Mg Inj) 1 mg IV NOW ONE Stop: 04/11/21 19:31 Last Admin: 04/11/21 19:45 Dose: 1 mg Documented by: LORRAINE Sodium Chloride (Normal Saline 0.9%) 1,000 mls @ 1,000 mls/hr IV BOLUS ONE Stop: 04/11/21 19:58 Last Infusion: 04/11/21 20:08 Dose: 0 mls/hr Documented by: Admin: 04/11/21 19:08 Dose: 1,000 mls/hr Documented by: LORRAINE Lidocaine HCl 6.1 ml/ Sodium (Chloride) 56.1 mls @ 336.6 mls/hr IV NOW ONE Stop: 04/11/21 19:31 Last Infusion: 04/11/21 20:08 Dose: 0 mls/hr Documented by: Admin: 04/11/21 19:45 Dose: 336.6 mls/hr Documented by: LORRAINE Ketorolac Tromethamine (Ketorolac 30 Mg/Ml Vial) 15 mg IV NOW ONE Stop: 04/11/21 19:08 Last Admin: 04/11/21 19:09 Dose: 15 mg Documented by: LORRAINE Ondansetron HCl (Ondansetron 4 Mg/2 Ml Inj) 4 mg IV NOW ONE Stop: 04/11/21 19:00 Last Admin: 04/11/21 19:08 Dose: 4 mg Documented by: LORRAINE Reevaluation(s) Reevaluation #1: Minimal change after Toradol Time: 19:33 Reevaluation #2: Significant improvement after Dilaudid and fluids Vital Signs Vital signs: Vital Signs - 8 hr 04/11/21 20:20 04/11/21 23:15 Pulse Rate 87 78 Respiratory Rate 16 16 Blood Pressure 128/78 Pulse Oximetry 98 97 MDM - Female Genitourinary Lab Data Result diagrams: 04/11/21 19:00 04/11/21 19:00 Labs: Lab Results 04/11/21 04/11/21 04/11/21 Range/Units 19:00 19:00 19:00 WBC 8.2 (4.5-11.0) X10^3/uL RBC 4.61 (4.0-5.2) X10^6/uL Hgb 13.2 (12.0-16.0) g/dL Hct 39.4 (36-46) % MCV 85.6 (80-100) fL MCH 28.6 (26-34) PG MCHC 33.4 (30-36) % RDW 12.9 (11.6-14.8) % Plt Count 197 (150-400) X10^3/uL Neut % (Auto) 58.7 (50-75) % Lymph % (Auto) 34.6 (25-40) % [place] % (Auto) 5.7 (3-14) % Eos % (Auto) 0.7 L (2-4) % Baso % (Auto) 0.3 (0-2) % Neut # (Auto) 4800 (4579-1118) /uL Lymph # (Auto) 2900 (1374-1860) /uL [place] # (Auto) 500 (0-900) /uL Eos # (Auto) 100 (0-450) /uL Baso # (Auto) 0 (0-100) /uL Sodium (137-145) mmol/L Potassium (3.4-5.1) mmol/L Chloride (98-107) mmol/L Carbon Dioxide (22-32) mmol/L BUN (7-17) mg/dL Creatinine (0.52-1.04) mg/dL Estimated GFR (>60) mL/min BUN/Creatinine Ratio (6-22) Glucose (70-100) mg/dL Calcium (8.4-10.2) mg/dL Total Bilirubin (0.2-1.3) mg/dL AST (14-36) IU/L ALT (<35) IU/L Alkaline Phosphatase (38-126) U/L Total Protein (6.3-8.2) g/dL Albumin (3.5-5.0) g/dL Globulin (1.7-4.1) g/dL Albumin/Globulin Ratio (1.0-2.8) Urine Color [place] Urine Appearance Sl cloudy Urine pH 5.0 (4.5-8.0) Ur Specific [place] >=1.030 H (1.000-1.035) Urine Protein 2+ H (Negative) Urine Glucose (UA) 1+ H (Negative) g/dL Urine Ketones Negative (NEGATIVE) Urine Occult Blood Negative (Negative) Urine Nitrate Positive H (Negative) Urine Bilirubin 1+ H (NEGATIVE) Ur Bilirubin Confirm Negative (Negative) Urine Urobilinogen 4.0 H (0.2) E.U./dL Ur Leukocyte Esterase Negative (NEGATIVE) Urine RBC None seen (0-5/HPF) Urine WBC 1-5/hpf (0-5/HPF) Ur Squamous Epith Cells 1-5 /hpf (0-5/HPF) Amorphous Sediment 1+ Urine Bacteria Moderate (10-30) H (None) Urine Mucus 2+ H (Negative) Ur Culture Indicated? Specimen cultured Urine Test Negative (Negative) 04/11/21 Range/Units 19:00 WBC (4.5-11.0) X10^3/uL RBC (4.0-5.2) X10^6/uL Hgb (12.0-16.0) g/dL Hct (36-46) % MCV (80-100) fL MCH (26-34) PG MCHC (30-36) % RDW (11.6-14.8) % Plt Count (150-400) X10^3/uL Neut % (Auto) (50-75) % Lymph % (Auto) (25-40) % [place] % (Auto) (3-14) % Eos % (Auto) (2-4) % Baso % (Auto) (0-2) % Neut # (Auto) (0561-0222) /uL Lymph # (Auto) (6085-8554) /uL [place] # (Auto) (0-900) /uL Eos # (Auto) (0-450) /uL Baso # (Auto) (0-100) /uL Sodium 138 (137-145) mmol/L Potassium 3.7 (3.4-5.1) mmol/L Chloride 108 H (98-107) mmol/L Carbon Dioxide 21 L (22-32) mmol/L BUN 15 (7-17) mg/dL Creatinine 0.84 (0.52-1.04) mg/dL Estimated GFR > 60.0 (>60) mL/min BUN/Creatinine Ratio 17.9 (6-22) Glucose 95 (70-100) mg/dL Calcium 9.8 (8.4-10.2) mg/dL Total Bilirubin 0.5 (0.2-1.3) mg/dL AST 21 (14-36) IU/L ALT 16 (<35) IU/L Alkaline Phosphatase 44 (38-126) U/L Total Protein 7.2 (6.3-8.2) g/dL Albumin 4.3 (3.5-5.0) g/dL Globulin 2.9 (1.7-4.1) g/dL Albumin/Globulin Ratio 1.5 (1.0-2.8) Urine Color Urine Appearance Urine pH (4.5-8.0) Ur Specific [place] (1.000-1.035) Urine Protein (Negative) Urine Glucose (UA) (Negative) g/dL Urine Ketones (NEGATIVE) Urine Occult Blood (Negative) Urine Nitrate (Negative) Urine Bilirubin (NEGATIVE) Ur Bilirubin Confirm (Negative) Urine Urobilinogen (0.2) E.U./dL Ur Leukocyte Esterase (NEGATIVE) Urine RBC (0-5/HPF) Urine WBC (0-5/HPF) Ur Squamous Epith Cells (0-5/HPF) Amorphous Sediment Urine Bacteria (None) Urine Mucus (Negative) Ur Culture Indicated? Urine Test (Negative) Imaging Data CT scan - abdomen/pelvis: Radiologist's Impression: Gaviota Morales 40 F [address] Scan ReportSigned Patient: Gaviota Morales LMR#: [id number]: 1980Acct:[id number]/Sex: 40 / FDate of Service: 04/11/21Loc: EDAccession Number: [id number] Procedure: CT kidney ureter bladder (KUB) Ordering Provider: Atilio Miller D.O. PROCEDURE: CT KIDNEY URETER BLADDER (KUB) INDICATIONS: severe flank pain TECHNIQUE: Axial sections were acquired from the lung bases to the pubic symphysis. Coronal and sagittal reformats were performed. For radiation dose reduction, the following was used: automated exposure control, adjustment of mA and/or kV according to patient size. COMPARISON:[facility], CT, CT ABDOMEN PELVIS W CON, 11/15/2018, 18:47. [facility], CT, KIDNEY/ URETER/BLADDER, 12/26/2014, 18:48. FINDINGS: Image quality: Excellent. Lung bases: Unremarkable. Heart: No significant findings. URINARY: Right Kidney: Multiple nonobstructing calculi measuring up to 4 mm at the interpolar region. Right Ureter: There is a 5 mm calculus at the left ureterovesicular junction (76/2) with mild left hydroureteronephrosis. Left Kidney: Multiple nonobstructing calculi measuring up to 6 mm at the inferior pole. Left Ureter: No hydroureter. Bladder: Normal wall thickness. No stones. ABDOMEN: Liver: Unremarkable. Gallbladder: Unremarkable. Biliary ducts: Unremarkable. Pancreas: Unremarkable. Spleen: Spleen is mildly enlarged, measuring up to 12.8 cm in craniocaudal dimension. Adrenal Glands: Unremarkable. Stomach and Bowel: Stomach, small bowel loops, and colon are unremarkable. Normal appendix. Peritoneum: No abnormal intraperitoneal fluid. No free air. Ventral Wall: No hernia. Abdominal Nodes: No enlarged retroperitoneal or mesenteric lymph nodes. Vessels: Aorta and inferior vena cava are normal in size. PELVIS: Pelvic Organs: Retroverted uterus again seen. The previously seen left ovarian cyst has decreased in size. A coarse calcification is seen in the left adnexal region that appears stable. Pelvic Nodes: Unremarkable. Miscellaneous: No inguinal hernias are seen. Bones: Spinal fixation hardware is seen at the L4-5 level. IMPRESSION: 1. Left distal ureteral 5 mm calculus at the ureterovesicular junction with mild left hydroureteronephrosis. 2. Additional nonobstructing renal calculi bilaterally. 3. Stable mild splenomegaly. Dictated by: Mariano Macedo M.D. on 04/11/2021 at 20:20 Approved by: Mariano Macedo M.D. on 04/11/2021 at 20:26 [facility] Narrative Medical decision making narrative: Patient with sudden onset left flank pain consistent with prior kidney stones. Her pain is well controlled with standard therapies. CT demonstrates a 5 mm stone in the distal ureter. No evidence of sepsis, pain well controlled, renal function unchanged. Patient had already been given antibiotics for urinary tract infection. We discussed the need to continue taking these, as well as the medications I gave her. Return precautions given and questions answered to her apparent satisfaction Discharge Plan Departure Patient Disposition: Home Clinical Impression: Kidney stone on left side Instructions: DI for Kidney Stones Activity Restrictions/Additional Instructions: *You have been diagnosed with [left-sided kidney stone] *What to do: *Please continue to take your regular medications as directed. [x ] New medication prescriptions sent to your pharmacy: [ ] [ ] New medication written as a paper prescription [ ] No new medications given *Please follow up with your primary care provider in 2-3 days, call for an appointment. Let them know you were seen in the Emergency Department and that we ask that you be seen in follow up. We will electronically transmit a record of today's note if your PCP is in our system *If you do not have a primary care provider please contact the [facility] Resource line at [phone]. They will ask some questions about your medical history and help get you set up with a doctor in the community. *Return to Emergency Department if you should have any new, worsening or concerning symptoms, such as [fever greater than 101 F, shaking chills, worsening pain, persistent vomiting or other bothersome symptoms] Prescriptions: New hydrocodone-acetaminophen 5-325 mg tablet 1 tab PO Q4-6H PRN (Reason: pain) Qty: 10 RF: 0 ketorolac 10 mg tablet 10 mg PO Q6H PRN (Reason: pain) Qty: 14 RF: 0 tamsulosin [Flomax] 0.4 mg capsule 0.4 mg PO DAILY Qty: 20 RF: 0 ondansetron 4 mg tablet,disintegrating 4 mg PO TID-QID PRN (Reason: nausea and vomiting) Qty: 10 RF: 0 No Action spironolactone 100 mg tablet 100 mg PO DAILY Qty: 30 RF: 2 sumatriptan succinate 25 mg tablet 25 mg PO Q2H PRN (Reason: migraine headache) Qty: 7 RF: 1 drospirenone-ethinyl estradiol [JOSE ELIAS (28)] 3-0.02 mg tablet 1 tab PO DAILY Qty: 84 RF: 3 ondansetron 4 mg tablet,disintegrating See Rx Instructions .ROUTE .COMPLEX Qty: 30 RF: 0 bupropion HCl 450 mg tablet extended release 24 hr 450 mg PO QAM Qty: 30 RF: 2 lorazepam 0.5 mg tablet See Rx Instructions .ROUTE .COMPLEX Qty: 20 RF: 0 buspirone 15 mg tablet 15 mg PO BID Qty: 60 RF: 2 fluconazole [Diflucan] 150 mg tablet 150 mg PO DAILY Qty: 1 RF: 1 nitrofurantoin monohyd/m-cryst [Macrobid] 100 mg capsule 100 mg PO Q12H 5 Days Qty: 10 RF: 0 Referrals: Nayeli Levi DO [Primary Care Provider] -
[2021-04-11 19:33] LABS: Add Manual Diff / Slide Review NO; Basophils Absolute Auto 0 /uL (0-100); Basophils Percent Auto 0.3 % (0-2); Eosinophils Absolute Auto 100 /uL (0-450); Eosinophils Percent Auto 0.7 % (2-4); Hematocrit 39.4 % (36-46); Hemoglobin 13.2 g/dL (12.0-16.0); Lymphocytes Absolute Auto 2900 /uL (1100-4500); Lymphocytes Percent Auto 34.6 % (25-40); Mean Corpuscular HGB Conc 33.4 % (30-36); Mean Corpuscular Hemoglobin 28.6 PG (26-34); Mean Corpuscular Volume 85.6 fL (80-100); Monocytes Absolute Auto 500 /uL (0-900); Monocytes Percent Auto 5.7 % (3-14); Neutrophils Absolute Auto 4800 /uL (1500-7000); Neutrophils Percent Auto 58.7 % (50-75); Platelet Count 197 X10^3/uL (150-400); Red Blood Cell Count 4.61 X10^6/uL (4.0-5.2); Red Cell Distribution Width 12.9 % (11.6-14.8); White Blood Cell Count 8.2 X10^3/uL (4.5-11.0)
[2021-04-11 19:41] LABS: Alanine Aminotransferase 16 IU/L (<35); Albumin 4.3 g/dL (3.5-5.0); Albumin Globulin Ratio 1.5 (1.0-2.8); Alkaline Phosphatase 44 U/L (38-126); Aspartate Aminotransferase 21 IU/L (14-36); BUN Creatinine Ratio 17.9 (6-22); Bilirubin Total 0.5 mg/dL (0.2-1.3); Blood Urea Nitrogen 15 mg/dL (7-17); Calcium 9.8 mg/dL (8.4-10.2); Carbon Dioxide 21 mmol/L (22-32); Chloride 108 mmol/L (98-107); Estimated Glomerular Filt Rate > 60.0 mL/min (>60); Globulin 2.9 g/dL (1.7-4.1); Glucose 95 mg/dL (70-100); HEMOLYSIS < 15 (0-50); Potassium 3.7 mmol/L (3.4-5.1); Sodium 138 mmol/L (137-145); Total Protein 7.2 g/dL (6.3-8.2)
[2021-04-11] MEDS: LIDOCAINE 2% 6.1 ML in SODIUM CHLORIDE 0.9% 50 ML 336.6 ML IV (19:45)
[2021-04-11] MEDS: HYDROMORPHONE 1 MG INJ IV (19:45)
--- NOTE | 2021-04-11 19:52 | PC.NURSE ---
Pt placed on cardiac nurse for lidocaine infusion. tolerating well. HR 87 NSR
[2021-04-11 19:56] LABS: Bilirubin Urine UA 1+ (NEGATIVE); Color Urine UA ORANGE; Glucose Urine UA 1+ g/dL (Negative); Ketones Urine UA NEGATIVE (NEGATIVE); Leukocyte Esterase Urine UA NEGATIVE (NEGATIVE); Nitrite Urine UA POSITIVE (Negative); Occult Blood Urine UA NEGATIVE (Negative); Protein Urine UA 2+ (Negative); Specific Gravity Urine UA >=1.030 (1.000-1.035)
[2021-04-11 19:58] LABS: Appearance Urine UA SL CLOUDY
[2021-04-11 20:01] LABS: Pregnancy Test Urine Negative (Negative)
[2021-04-11 20:07] LABS: Amorphous Sediment Urine 1+; Bacteria Urine Moderate (10-30); Ictotest Urine Negative (Negative); Mucus Urine 2+ (Negative); Squamous Epithelial Cell Urine 1-5 /HPF (0-5/HPF); WBC Urine 1-5/HPF (0-5/HPF)
[2021-04-11 20:08] LABS: Culture Indicated Urine Specimen Cultured
[2021-04-11 20:20] VITALS: PULSE 87; RESP 16; O2SAT 98
[2021-04-11] MEDS: HYDROCODONE/ACET 5/325 PREPACK 1 BOTTLE MISC (22:44)
[2021-04-11 23:15] VITALS: BP 128/78; PULSE 78; RESP 16; O2SAT 97
== END 2021-04-11 23:16 | disposition home or self-care (01) ==
PROVIDERS: Emergency Provider Emergency Medicine; PCP Family Medicine
DX: N20.0 Calculus of kidney (principal); Z87.442 Personal history of urinary calculi
CPT/HCPCS: 36415; 74176; 80053; 81001; 81025; 85025; 87086; 96361; 96365; 96375; 99284; J1170; J1885; J2405

== ENCOUNTER → 2022-01-30 14:45 | Outpatient (CLI) | payer OTHER, MEDICAID, SELFPAY ==
--- NOTE | 2022-01-30 | DI.MG.S_ITS ---
BILATERAL DIGITAL SCREENING MAMMOGRAM 3D/2D WITH CAD: 01/30/2022 CLINICAL: Routine screening. Family history of breast cancer. Comparison is made to exam dated: 10/17/2018 mammogram - [facility]. The tissue of both breasts is heterogeneously dense. This may lower the sensitivity of mammography. Current study was also evaluated with a Computer Aided Detection (CAD) system. There is a new irregular mass in the left breast at 1 o'clock posterior depth. No other significant masses, calcifications, or other findings are seen in either breast. IMPRESSION: INCOMPLETE: NEEDS ADDITIONAL IMAGING EVALUATION The new irregular mass in the left breast is indeterminate. Additional views with possible ultrasound are recommended. This exam was interpreted at Station ID: [id number]. NOTE: For mammograms, a report in lay terms will be sent to the patient. Approximately 15% of breast malignancies will not be visualized mammographically. In the management of a palpable breast mass, a negative mammogram must not discourage biopsy of a clinically suspicious lesion. Electronically Signed By: Mariano martin/duong:01/30/2022 15:29:49 copy to: Nayeli Levi letter sent: Additional Imaging Needed ACR BI-RADS Category 0: Incomplete [id number]
== END ==
PROVIDERS: PCP Family Medicine; Referring Provider Family Medicine; Visit Provider Family Medicine
DX: Z12.31 Encounter for screening mammogram for malignant neoplasm of breast (principal); Z80.3 Family history of malignant neoplasm of breast; N63.21 Unspecified lump in the left breast, upper outer quadrant
CPT/HCPCS: 77063; 77067

== ENCOUNTER → 2022-02-28 08:32 | Outpatient (CLI) | payer OTHER, MEDICAID, SELFPAY ==
--- NOTE | 2022-02-28 | DI.MG.S_ITS ---
UNILATERAL LEFT DIGITAL DIAGNOSTIC MAMMOGRAM 3D/2D WITH ADDITIONAL VIEWS: 02/28/2022 CLINICAL: Additional evaluation requested from prior study. Comparison is made to exams dated: 01/30/2022 mammogram and 10/17/2018 mammogram - [facility]. The tissue of left breast is heterogeneously dense. This may lower the sensitivity of mammography. The asymmetry in the left breast at 1 o'clock posterior depth is no longer seen. This is not seen in additional views. No other significant masses or calcifications are seen in the breast. IMPRESSION: BENIGN There is no mammographic evidence of malignancy. Return to annual mammogram screening schedule is recommended. This exam was interpreted at Station ID: [id number]. NOTE: For mammograms, a report in lay terms will be sent to the patient. Approximately 15% of breast malignancies will not be visualized mammographically. In the management of a palpable breast mass, a negative mammogram must not discourage biopsy of a clinically suspicious lesion. Electronically Signed By: John Roberson acr/:02/28/2022 09:30:37 copy to: Nayeli Levi letter sent: Normal Exam ACR BI-RADS Category 2: Benign Finding(s) 3342F
== END ==
PROVIDERS: PCP Family Medicine; Referring Provider Family Medicine; Visit Provider Family Medicine
DX: R92.8 Other abnormal and inconclusive findings on diagnostic imaging of breast (principal)
CPT/HCPCS: 77065; G0279

== ENCOUNTER → 2023-04-02 15:39 | Outpatient (CLI) | payer OTHER, MEDICAID, SELFPAY ==
[2023-04-02 16:54] LABS: Creatinine Urine Random 144.1 mg/dL
[2023-04-02 16:56] LABS: Microalbumi Creatinin Ratio Ur 20.8 ug/mg CR (<30)
== END ==
PROVIDERS: PCP Family Medicine; Visit Provider Physician Assistant
DX: E28.2 Polycystic ovarian syndrome (principal); E66.9 Obesity, unspecified; E78.5 Hyperlipidemia, unspecified; F32.9 Major depressive disorder, single episode, unspecified; F41.9 Anxiety disorder, unspecified; G47.00 Insomnia, unspecified; O24.414 Gestational diabetes mellitus in pregnancy, insulin controlled; R53.83 Other fatigue; R73.01 Impaired fasting glucose; R73.03 Prediabetes
CPT/HCPCS: 82043; 82570

== ENCOUNTER → 2023-04-17 10:33 | Outpatient (CLI) | payer OTHER, MEDICAID, SELFPAY ==
[2023-04-17 11:32] LABS: Alanine Aminotransferase 18 IU/L (<35); Albumin 3.9 g/dL (3.5-5.0); Albumin Globulin Ratio 1.3 (1.0-2.8); Alkaline Phosphatase 55 U/L (38-126); Aspartate Aminotransferase 21 IU/L (14-36); BUN Creatinine Ratio 16.1 (6-22); Bilirubin Total 0.3 mg/dL (0.2-1.3); Blood Urea Nitrogen 10 mg/dL (7-17); Calcium 8.6 mg/dL (8.4-10.2); Carbon Dioxide 22 mmol/L (22-32); Chloride 107 mmol/L (98-107); Cholesterol 161 mg/dL (140-199); Estimated Glomerular Filt Rate > 60 mL/min (>60); Globulin 2.9 g/dL (1.7-4.1); Glucose 109 mg/dL (70-100); HDL Cholesterol 58 mg/dL (40-60); HEMOLYSIS < 15 (0-50); LDL Cholesterol Calculated 91 mg/dL (<100); Potassium 3.9 mmol/L (3.4-5.1); Sodium 136 mmol/L (137-145); Total Protein 6.8 g/dL (6.3-8.2); Triglycerides 62 mg/dL (35-150)
[2023-04-17 12:03] LABS: TSH w/ Reflex to FT4 0.85 uIU/mL (0.47-4.68)
[2023-04-17 12:20] LABS: Vitamin B12 232 pg/mL (239-931)
[2023-04-17 13:25] LABS: Add Manual Diff / Slide Review NO; Basophils Absolute Auto 0 /uL (0-100); Basophils Percent Auto 0.3 % (0-2); Eosinophils Absolute Auto 0 /uL (0-450); Eosinophils Percent Auto 0.7 % (2-4); Hematocrit 43.3 % (36-46); Hemoglobin 14.8 g/dL (12.0-16.0); Lymphocytes Absolute Auto 1600 /uL (1100-4500); Lymphocytes Percent Auto 25.7 % (25-40); Mean Corpuscular HGB Conc 34.1 % (30-36); Mean Corpuscular Volume 85.1 fL (80-100); Monocytes Absolute Auto 300 /uL (0-900); Monocytes Percent Auto 4.7 % (3-14); Neutrophils Absolute Auto 4200 /uL (1500-7000); Neutrophils Percent Auto 68.6 % (50-75); Platelet Count 172 X10^3/uL (150-400); Red Blood Cell Count 5.09 X10^6/uL (4.0-5.2); Red Cell Distribution Width 13.9 % (11.6-14.8); White Blood Cell Count 6.1 X10^3/uL (4.5-11.0)
[2023-04-18 05:16] LABS: x Labcorp Estim. Avg Glu (eAG) 97 mg/dL (.)
== END ==
PROVIDERS: PCP Family Medicine; Referring Provider Physician Assistant; Visit Provider Physician Assistant
DX: E28.2 Polycystic ovarian syndrome (principal); E66.9 Obesity, unspecified; E78.5 Hyperlipidemia, unspecified; F32.9 Major depressive disorder, single episode, unspecified; F41.9 Anxiety disorder, unspecified; G47.00 Insomnia, unspecified; R53.83 Other fatigue; R73.01 Impaired fasting glucose; R73.03 Prediabetes; O24.414 Gestational diabetes mellitus in pregnancy, insulin controlled
CPT/HCPCS: 36415; 80053; 80061; 82607; 83036; 84443; 85025

== ENCOUNTER → 2023-10-17 12:28 | Outpatient (CLI) | payer OTHER, MEDICAID, SELFPAY ==
--- NOTE | 2023-10-17 | DI.MG.S_ITS ---
BILATERAL DIGITAL SCREENING MAMMOGRAM 3D/2D WITH CAD: 10/17/2023 CLINICAL: Routine screening. Family history of breast cancer. Comparison is made to exams dated: 02/28/2022 mammogram, 01/30/2022 mammogram, and 10/17/2018 mammogram - [facility]. Both breasts are heterogeneously dense, which may obscure small masses (category c / 51-75% glandular tissue). Current study was also evaluated with a Computer Aided Detection (CAD) system. There is an asymmetry in the right breast posterior depth superior region seen on the mediolateral oblique view only. No other significant masses, calcifications, or other findings are seen in either breast. IMPRESSION: INCOMPLETE: NEEDS ADDITIONAL IMAGING EVALUATION The asymmetry in the right breast is indeterminate. Additional views with possible ultrasound are recommended. Based on the Tyrer Cuzick model (a risk assessment model) the patient's lifetime risk is 18.7% and her 10 year risk is 3.3%. According to the ACR, ACS, and NCCN guidelines, an annual breast MRI exam along with mammogram is recommended if the patient's lifetime risk is 20% or greater. This exam was interpreted at Station ID: [id number]. NOTE: For mammograms, a report in lay terms will be sent to the patient. Approximately 15% of breast malignancies will not be visualized mammographically. In the management of a palpable breast mass, a negative mammogram must not discourage biopsy of a clinically suspicious lesion. Electronically Signed By: Rudy Espinosa M.D. lc/:10/17/2023 15:37:01 copy to: Nayeli Levi letter sent: Additional Imaging Needed ACR BI-RADS Category 0: Incomplete 3340F
== END ==
PROVIDERS: PCP Family Medicine; Referring Provider Family Medicine; Visit Provider Family Medicine
DX: Z12.31 Encounter for screening mammogram for malignant neoplasm of breast (principal); Z80.3 Family history of malignant neoplasm of breast; R92.333 Mammographic heterogeneous density, bilateral breasts
CPT/HCPCS: 77063; 77067

== ENCOUNTER → 2023-11-07 13:23 | Outpatient (CLI) | payer OTHER, MEDICAID, SELFPAY ==
--- NOTE | 2023-11-07 | DI.MG.S_ITS ---
UNILATERAL RIGHT DIGITAL DIAGNOSTIC MAMMOGRAM 3D/2D WITH ADDITIONAL VIEWS: 11/07/2023 CLINICAL: Additional evaluation requested from prior study. Comparison is made to exams dated: 10/17/2023 mammogram, 02/28/2022 mammogram, 01/30/2022 mammogram, and 10/17/2018 mammogram - [facility]. The right breast is heterogeneously dense, which may obscure small masses (category c / 51-75% glandular tissue). There is an asymmetry in the right breast posterior depth superior region seen on the mediolateral oblique view only. This is less prominent and decreased in size. No other significant masses or calcifications are seen in the breast. IMPRESSION: INCOMPLETE: NEEDS ADDITIONAL IMAGING EVALUATION The asymmetry in the right breast localizing to the 12 oclock position posterior depth is indeterminate. An ultrasound is recommended for further evaluation and is scheduled to immediately follow this examination. Based on the Tyrer Cuzick model (a risk assessment model) the patient's lifetime risk is 18.7% and her 10 year risk is 3.3%. According to the ACR, ACS, and NCCN guidelines, an annual breast MRI exam along with mammogram is recommended if the patient's lifetime risk is 20% or greater. This exam was interpreted at Station ID: [id number]. NOTE: For mammograms, a report in lay terms will be sent to the patient. Approximately 15% of breast malignancies will not be visualized mammographically. In the management of a palpable breast mass, a negative mammogram must not discourage biopsy of a clinically suspicious lesion. Electronically Signed By: Jose Burk M.D. aty/:11/07/2023 15:25:56 copy to: Nayeli Levi ACR BI-RADS Category 0: Incomplete 3340F
--- NOTE | 2023-11-07 13:24 | DI.US.S_ITS ---
ULTRASOUND OF RIGHT BREAST: 11/07/2023 CLINICAL: Patient returns today to evaluate a focal asymmetry in the right breast. Comparison is made to exams dated: 11/07/2023 mammogram, 10/17/2023 mammogram, 01/30/2022 mammogram, and 10/17/2018 mammogram - [facility]. Color flow and real-time ultrasound of the right breast were performed. Reed scale images of the real-time examination were reviewed. There is a 0.9 cm x 0.3 cm x 0.6 cm wider than tall oval cyst with a smooth internal wall in the right breast at 12 o'clock middle depth 4 cm from the nipple. This oval cyst is hypoechoic with a well-defined boundary and internal echoes. This correlates with mammography findings. Color flow imaging demonstrates that there is no vascularity present. IMPRESSION: PROBABLY BENIGN The 0.9 cm x 0.3 cm x 0.6 cm wider than tall oval cyst in the right breast resembles a complicated cyst and is probably benign. A follow-up right mammogram and an ultrasound in 6 months is recommended to demonstrate stability. Findings and recommendations were conveyed to the patient during today's evaluation. This exam was interpreted at Station ID: [id number]. Electronically Signed By: Jose Burk M.D. at/:11/07/2023 15:28:04 copy to: Nayeli Levi letter sent: Followup Recommended Ultrasound BI-RADS: 3 Probably benign
== END ==
LOC: MAMMO 13:23
PROVIDERS: PCP Family Medicine; Referring Provider Family Medicine; Visit Provider Family Medicine
DX: R92.8 Other abnormal and inconclusive findings on diagnostic imaging of breast (principal); N60.01 Solitary cyst of right breast; R92.331 Mammographic heterogeneous density, right breast
CPT/HCPCS: 76642; 77065; G0279

== ENCOUNTER → 2024-05-08 08:41 | Outpatient (CLI) | payer OTHER, MEDICAID, SELFPAY ==
--- NOTE | 2024-05-08 08:42 | DI.US.S_ITS ---
LIMITED ULTRASOUND OF RIGHT BREAST: 05/08/2024 CLINICAL: 6 month follow-up of cyst cluster. Comparison is made to exams dated: 05/08/2024 mammogram, 11/07/2023 ultrasound, 11/07/2023 mammogram, 10/17/2023 mammogram, 01/30/2022 mammogram, and 10/17/2018 mammogram - [facility]. Color flow and real-time ultrasound of the right breast 12 o'clock region were performed. Reed scale images of the real-time examination were reviewed. There is a stable 0.8 cm x 0.5 cm x 0.3 cm wider than tall oval cyst with a smooth internal wall in the right breast at 12 o'clock middle depth 4 cm from the nipple. This oval cyst is hypoechoic with a well-defined boundary and internal echoes. This correlates with mammography findings. Color flow imaging demonstrates that there is no vascularity present. IMPRESSION: INCOMPLETE: NEEDS ADDITIONAL IMAGING EVALUATION The stable 0.8 cm oval cyst in the right breast resembles a complicated cyst or fibroglandular tissue and is probably benign. Patient reports 25 lbs unintentional weight loss and fatigue and history of Gorlin Syndrome. MRI would be helpful to further evaluate the breast parenchyma and this finding in the right breast. Recommend CT Chest abdomen and pelvis with IV contrast to screen for masses and adenopathy. Call was placed to ordering providers office. This exam was interpreted at Station ID: [id number]. Electronically Signed By: Damaso Daugherty M.D. slc/:05/08/2024 10:27:23 copy to: Nayeli Levi letter sent: Additional Imaging Needed Ultrasound BI-RADS: 0 Indeterminate
--- NOTE | 2024-05-08 08:42 | DI.MG.S_ITS ---
UNILATERAL RIGHT DIGITAL DIAGNOSTIC MAMMOGRAM 3D/2D: 05/08/2024 CLINICAL: Patient returns for a 6 month follow up of the right breast. Comparison is made to exams dated: 10/17/2023 mammogram, 01/30/2022 mammogram, 10/17/2018 mammogram, 11/07/2023 ultrasound, and 11/07/2023 mammogram - [facility]. The right breast is heterogeneously dense, which may obscure small masses (category c / 51-75% glandular tissue). There is an asymmetry in the right breast posterior depth superior region seen on the mediolateral oblique view only. This is less prominent and decreased in size. No other significant masses or calcifications are seen in the breast. IMPRESSION: INCOMPLETE: NEEDS ADDITIONAL IMAGING EVALUATION The asymmetry in the right breast is indeterminate. A targeted ultrasound is recommended and will immediately follow. Based on the Tyrer Cuzick model (a risk assessment model) the patient's lifetime risk is 18.7% and her 10 year risk is 3.3%. According to the ACR, ACS, and NCCN guidelines, an annual breast MRI exam along with mammogram is recommended if the patient's lifetime risk is 20% or greater. This exam was interpreted at Station ID: [id number]. NOTE: For mammograms, a report in lay terms will be sent to the patient. Approximately 15% of breast malignancies will not be visualized mammographically. In the management of a palpable breast mass, a negative mammogram must not discourage biopsy of a clinically suspicious lesion. Electronically Signed By: Damaso Daugherty M.D. slc/:05/08/2024 10:03:57 copy to: Nayeli Levi ACR BI-RADS Category 0: Incomplete 3340F
== END ==
LOC: MAMMO 08:41
PROVIDERS: PCP Family Medicine; Referring Provider Family Medicine; Visit Provider Family Medicine
DX: N64.89 Other specified disorders of breast (principal); N60.01 Solitary cyst of right breast
CPT/HCPCS: 76642; 77065; G0279

== ENCOUNTER → 2024-05-12 15:05 | Outpatient (CLI) | payer OTHER, MEDICAID, SELFPAY ==
[2024-05-12 15:59] LABS: Add Manual Diff / Slide Review NO; Basophils Absolute Auto 0 /uL (0-100); Basophils Percent Auto 0.2 % (0-2); Eosinophils Absolute Auto 0 /uL (0-450); Eosinophils Percent Auto 0.3 % (2-4); Hematocrit 41.5 % (36-46); Hemoglobin 14.2 g/dL (12.0-16.0); Lymphocytes Absolute Auto 1300 /uL (1100-4500); Lymphocytes Percent Auto 18.5 % (25-40); Mean Corpuscular HGB Conc 34.3 % (30-36); Mean Corpuscular Hemoglobin 28.9 PG (26-34); Mean Corpuscular Volume 84.1 fL (80-100); Monocytes Absolute Auto 300 /uL (0-900); Monocytes Percent Auto 4.9 % (3-14); Neutrophils Absolute Auto 5300 /uL (1500-7000); Neutrophils Percent Auto 76.1 % (50-75); Platelet Count 164 X10^3/uL (150-400); Red Blood Cell Count 4.93 X10^6/uL (4.0-5.2); Red Cell Distribution Width 12.8 % (11.6-14.8)
[2024-05-12 16:15] LABS: Ur Creatinine Normal (Normal); Ur Specific Gravity Normal (Normal); Urine pH Normal (Normal)
[2024-05-12 16:16] LABS: Urine Amphetamines Positive (Negative); Urine Barbiturates Negative (Negative); Urine Benzodiazepines Negative (Negative); Urine Cocaine Negative (Negative); Urine MDMA Negative (Negative); Urine Methadone Negative (Negative); Urine Methamphetamines Negative (Negative); Urine Opiates Negative (Negative); Urine Oxycodone Negative (Negative); Urine Phencyclidine Negative (Negative); Urine THC Positive (Negative); Urine Tricyclic Antidepressant Negative (Negative)
[2024-05-12 16:32] LABS: Alanine Aminotransferase 18 IU/L (<35); Albumin 4.3 g/dL (3.5-5.0); Albumin Globulin Ratio 1.5 (1.0-2.8); Alkaline Phosphatase 44 U/L (38-126); Aspartate Aminotransferase 20 IU/L (14-36); BUN Creatinine Ratio 12.5 (6-22); Bilirubin Total 0.7 mg/dL (0.2-1.3); Blood Urea Nitrogen 8 mg/dL (7-17); Calcium 8.9 mg/dL (8.4-10.2); Carbon Dioxide 23 mmol/L (22-32); Chloride 105 mmol/L (98-107); Estimated Glomerular Filt Rate > 60 mL/min (>60); Globulin 2.9 g/dL (1.7-4.1); Glucose 131 mg/dL (70-100); HEMOLYSIS < 15 (0-50); Potassium 3.2 mmol/L (3.4-5.1); Sodium 137 mmol/L (137-145); Total Protein 7.2 g/dL (6.3-8.2)
[2024-05-12 17:00] LABS: TSH w/ Reflex to FT4 0.98 uIU/mL (0.47-4.68)
[2024-05-12 17:19] LABS: Vitamin B12 227 pg/mL (239-931)
== END ==
PROVIDERS: PCP Family Medicine; Referring Provider Family Medicine; Visit Provider Family Medicine
DX: R53.82 Chronic fatigue, unspecified (principal); R63.4 Abnormal weight loss; F90.9 Attention-deficit hyperactivity disorder, unspecified type
CPT/HCPCS: 36415; 80053; 80305; 82607; 84443; 85025

== ENCOUNTER → 2024-05-26 07:38 | Outpatient (CLI) | payer OTHER, MEDICAID, SELFPAY ==
--- NOTE | 2024-05-26 | DI.MRI.S_ITS ---
BREAST MRI OF BOTH BREASTS: 05/26/2024 CLINICAL: FAMILY HISTORY BREASR CANCER. DENSE BREASTS. RIGHT BREAST MASS. PROCEDURE: MR BREAST BI WO/W CON INDICATIONS: RIGHT BREAST MASS TECHNIQUE: The patient was placed prone in a dedicated breast imaging coil. Precontrast axial STIR and 3D FLASH without fat saturation sequences were obtained. Both before and after bolus injection of contrast, sequential 1-minute axial 3D FLASH with fat saturation sequences for 3 time points, with subtraction images and maximum intensity projections (MIP's) generated. Delayed sagittal FLASH images with fat saturation were also obtained. CONTRAST: 20 cc ProHance IV contrast. Computer-aided detection, including computer algorithm analysis of MRI image data for lesion detection and characterization, pharmacokinetic analysis, with further physician review for interpretation, was performed. COMPARISON: [facility], CT, CT CHEST ABD PEL W CON, 05/26/2024, 8:43. [facility], US, US BREAST RT LIMITED, 05/08/2024, 9:26. [facility], MG, MM DIAGNOSTIC MAMMO UNILAT RT, 05/08/2024, 9:13. US, US BREAST RT LIMITED, 11/07/2023, 14:53. MG, MM SPECIAL VIEW RT, 11/07/2023, 13:53. MG, MM SCREENING MAMMO BI, 10/17/2023, 12:54. MG, MM SCREENING MAMMO BI, 01/30/2022, 15:05. FINDINGS: Image quality: Excellent. There is marked background parenchymal enhancement. Right breast: No mass or suspicious enhancement. Right breast 12 o'clock posterior depth T2 hyperintense cyst measuring 0.5 cm, (2/33). This corresponds to the prior mammographic and ultrasound finding. No suspicious enhancement. Left breast: No mass or suspicious enhancement. Miscellaneous: No enlarged lymph nodes. IMPRESSION: BENIGN Marked background parenchymal enhancement. This limits exam sensitivity. No mass or suspicious enhancement. No enlarged lymph nodes. Right breast 12 o'clock posterior depth benign cyst which corresponds to the abnormality seen on prior mammogram and ultrasound. BIRADS 2. A 1 year screening mammogram is recommended. COMMENT: The imaging literature indicates that a negative contrast breast MRI examination has a high sensitivity and a moderate specificity for detecting and excluding invasive carcinomas to a detection threshold of 3-5 mm; nonetheless, appropriate clinical and mammographic follow-up are recommended. MRI is not sensitive for detecting DCIS (ductal carcinoma in situ) and may not detect large invasive neoplasms that show only minimal enhancement such as mucinous carcinoma. If there are suspicious calcifications or clinically worrisome palpable masses, then biopsy should still be considered. Invasive neoplasms can be hidden by co-existent and benign enhancement caused by mastitis, hormone therapy effects, radiation therapy, , and recent biopsy or surgery. False positive examinations can occur in a number of circumstances, including breasts that have recently been subject to invasive procedures and those that contain atypical ductal hyperplasia, hormonally stimulated glandular tissue, fat necrosis, or radial scars. Dictated by: Damaso Daugherty M.D. on 05/26/2024 at 16:40 This exam was interpreted at Station ID: [id number]. Electronically Signed By: Damaso Daugherty M.D. slc/:05/26/2024 17:07:33 copy to: Nayeli Levi letter sent: Normal Exam ACR BI-RADS Category 2: Benign
--- NOTE | 2024-05-26 07:39 | DI.CT.S_ITS ---
PROCEDURE: CT CHEST ABD PEL W CON INDICATIONS: unintended weight loss TECHNIQUE: After the administration of intravenous contrast, 5 mm thick sections acquired from the lung apices to the symphysis. 5 mm coronal and sagittal reformats were performed, with additional 7 mm MIP reformats through the lungs. For radiation dose reduction, the following was used: automated exposure control, adjustment of mA and/or kV according to patient size. COMPARISON: [facility], CT, CT KIDNEY URETER BLADDER (KUB), 04/11/2021, 19:45. [facility], US, US BREAST RT LIMITED, 05/08/2024, 9:26. [facility], MR, MR BREAST BI WO/W CON, 05/26/2024, 8:20. FINDINGS: Image quality: Excellent. CHEST: Lower Neck: No enlarged lymph nodes. Thyroid: No thyroid nodules which require sonographic follow up, per consensus guidelines. Axillae: No enlarged lymph nodes. Chest Wall: Unremarkable. Lungs and Pleura: No pneumothorax or pleural effusions. No consolidation or suspicious nodules. Heart: Heart size is normal. No pericardial effusion. Thoracic Vessels: The aorta and pulmonary arteries demonstrate normal size. Mediastinum and Brenda: No enlarged lymph nodes. Esophagus: No wall thickening. No hiatal hernia. ABDOMEN: Liver: No solid mass. Liver is hypoattenuating, suspicious for fatty infiltration. Gallbladder: No radiopaque gallstones or wall thickening. Biliary ducts: No biliary dilation. Pancreas: No ductal dilation. Spleen: Spleen is mildly enlarged measuring up to 13 cm in craniocaudal extent. Adrenal Glands: No adrenal nodules. Kidneys and Ureters: No hydronephrosis. No solid mass. No complex renal cystic lesion which requires follow up. 5 mm nonobstructing calculus is seen at the inferior pole of left kidney (800 Hounsfield units). Additional non-obstructing 4 mm and 3 mm calculi are seen at the superior pole of left kidney. Two 4 mm nonobstructing calculi are seen at the superior pole of the right kidney. Stomach and Bowel: Areas minimal narrowing in the colon likely related to underdistention or peristalsis. No definite colonic mass is seen. Small bowel loops and stomach are unremarkable. Peritoneum: No abnormal intraperitoneal fluid. No free air. Ventral Wall: No significant ventral hernia. Abdominal Nodes: No retroperitoneal or mesenteric adenopathy by size criteria. Vessels: Aorta and inferior vena cava are normal in size. PELVIS: Pelvic Organs: Retroverted uterus. There is peripheral enhancement in the uterus with relative under enhancement of the central myometrium. A 7 mm calcification is seen adjacent to the left ovary. Smaller calcification is seen in the right adnexa. These are stable when compared to the prior CT from 04/11/2021 and are most likely benign. Bladder: No bladder wall thickening, accounting for underdistention. Pelvic Nodes: No enlarged lymph nodes. Miscellaneous: No inguinal hernias are seen. Bones: No aggressive osseous abnormality. Postsurgical changes are seen in the lower lumbar spine. IMPRESSION: 1. Abnormal enhancement in the uterus likely related to the timing of the contrast bolus although a uterine neoplasm is not entirely excluded. Consider ultrasound of the pelvis for further evaluation. 2. Mild nonspecific splenomegaly. No significant lymphadenopathy. 3. Bilateral nonobstructing renal calculi. Approved by: Mariano Macedo M.D. on 05/27/2024 at 13:31
== END ==
PROVIDERS: PCP Family Medicine; Referring Provider Family Medicine; Visit Provider Family Medicine
DX: N60.01 Solitary cyst of right breast (principal); N63.10 Unspecified lump in the right breast, unspecified quadrant; R63.4 Abnormal weight loss; N20.0 Calculus of kidney; R16.1 Splenomegaly, not elsewhere classified; Z80.3 Family history of malignant neoplasm of breast
CPT/HCPCS: 71260; 74177; 77049; A9579; Q9967

== ENCOUNTER → 2024-06-02 14:37 | Outpatient (CLI) | payer OTHER, MEDICAID, SELFPAY ==
--- NOTE | 2024-06-02 14:38 | DI.US.S_ITS ---
PROCEDURE: US PELVIC COMPLETE INDICATIONS: POSSIBLE UTERINE ABNORMALITY ON CT TECHNIQUE: Real-time scanning was performed of the pelvic organs, with image documentation. Additional endovaginal scanning was necessary due to incomplete visualization of the adnexal and endometrial structures by transabdominal scanning. COMPARISON: [facility], CT, CT CHEST ABD PEL W CON, 05/26/2024, 8:43. FINDINGS: Uterus: Uterus is retroverted and normal in size at 7.4 x 4.6 x 6.6 cm. The myometrium is homogeneous. The endometrium measures 1 mm combined thickness. Ovaries: The right ovary measures 3.8 x 2.0 x 1.6 cm, with a calculated ovarian volume of 6.3 cc. The left ovary measures 3.2 x 1.6 x 3.1 cm, with a calculated ovarian volume of 8.3 cc. In the left ovary, there are 2 focal 6 mm calcifications. In the right ovary there is a focal 4 mm calcification. Less than 12 follicles can be seen in each ovary. No adnexal masses are seen. Other: No pathologic free abdominal or pelvic fluid. IMPRESSION: 1. No sonographic abnormality of the uterus. 2. Focal 4-6 mm calcifications in the ovaries, which may represent dermoid cysts versus sequelae of prior hemorrhagic cysts. Follow-up pelvic ultrasound in 1 year recommended. We strive to produce accurate, complete, and clear reports of imaging services. To assist us in improving patient care, this report was composed using standard report templates and voice recognition software. Therefore, it may contain abnormal punctuation, insertions and/or omissions. Occasional wrong-word or sound-alike substitutions may occur. Though we review the report and make efforts to correct it, we do recommend that the report be read carefully in proper context to recognize any text inaccuracies. Dictated by: Shane Capellan M.D. on 06/02/2024 at 16:28 Approved by: Shane Capellan M.D. on 06/02/2024 at 16:38
== END ==
PROVIDERS: PCP Family Medicine; Referring Provider Family Medicine; Visit Provider Family Medicine
DX: N83.8 Other noninflammatory disorders of ovary, fallopian tube and broad ligament (principal); R63.4 Abnormal weight loss
CPT/HCPCS: 76856

== ENCOUNTER → 2024-07-24 09:03 | Outpatient (CLI) | payer OTHER, MEDICAID, SELFPAY ==
[2024-07-24 10:45] LABS: BUN Creatinine Ratio 17.1 (6-22); Blood Urea Nitrogen 13 mg/dL (7-17); Calcium 9.3 mg/dL (8.4-10.2); Carbon Dioxide 24 mmol/L (22-32); Chloride 106 mmol/L (98-107); Estimated Glomerular Filt Rate > 60 mL/min (>60); Glucose 126 mg/dL (70-100); HEMOLYSIS < 15 (0-50); Potassium 4.6 mmol/L (3.4-5.1); Sodium 137 mmol/L (137-145)
== END ==
LOC: LAB 09:06
PROVIDERS: PCP Family Medicine; Referring Provider Family Medicine; Visit Provider Family Medicine
DX: E87.6 Hypokalemia (principal); R73.09 Other abnormal glucose
CPT/HCPCS: 36415; 80048; 83036

== ENCOUNTER → 2025-06-15 11:49 | Outpatient (CLI) | payer OTHER, SELFPAY ==
--- NOTE | 2025-06-15 11:50 | DI.US.S_ITS ---
PROCEDURE: US PELVIC COMPLETE INDICATIONS: f/u on cyst. see US from 2023 TECHNIQUE: Real-time scanning was performed of the pelvic organs, with image documentation. Additional endovaginal scanning was necessary due to incomplete visualization of the adnexal and endometrial structures by transabdominal scanning. COMPARISON: [facility], US, US PELVIC COMPLETE, 06/02/2024, 14:47. FINDINGS: Uterus is retroverted and measures 8.3 x 5.4 x 4.8 cm. Endometrial thickness 7.0 mm. Echotexture of uterus is heterogenous. Scattered hyperechogenic foci in the myometrium. Nabothian cysts. Right ovary measures 5.3 x 2.5 x 2.6 cm with calculated volume 17.5 mL. Simple cyst on the right included within this measurement in is 3.5 x 2.3 x 1.7 cm. Left ovary measures 3.6 x 2.9 x 1.6 cm with calculated volume 7.4 mL. Bilateral ovarian calcifications. No free fluid. IMPRESSION: Possible adenomyosis. Unchanged ovarian calcifications. We strive to produce accurate, complete, and clear reports of imaging services. To assist us in improving patient care, this report was composed using standard report templates and voice recognition software. Therefore, it may contain abnormal punctuation, insertions and/or omissions. Occasional wrong-word or sound-alike substitutions may occur. Though we review the report and make efforts to correct it, we do recommend that the report be read carefully in proper context to recognize any text inaccuracies. Dictated by: Cholo Goldsmith M.D. on 06/15/2025 at 17:39 Approved by: Cholo Goldsmith M.D. on 06/15/2025 at 17:43
== END ==
LOC: US 11:50
PROVIDERS: PCP Family Medicine; Referring Provider Family Medicine; Visit Provider Family Medicine
DX: N83.291 Other ovarian cyst, right side (principal); N83.8 Other noninflammatory disorders of ovary, fallopian tube and broad ligament; N88.8 Other specified noninflammatory disorders of cervix uteri
CPT/HCPCS: 76830; 76856

== ENCOUNTER 2025-08-23 12:32 | Day surgery (SDC) | payer OTHER, SELFPAY ==
[2025-08-18 08:27] VITALS: BMI 23.8
[2025-08-23] MEDS: FLEETS ENEMA 1 EACH PR (13:34)
[2025-08-23 13:36] VITALS: BP 139/95; PULSE 97; RESP 18; TEMP 36.4; O2SAT 96
[2025-08-23] MEDS: LACTATED RINGERS 1,000 ML 42 ML IV (13:36)
--- NOTE | 2025-08-23 13:54 | PM.HP.IH.1 ---
History of Present Illness History of Present Illness Date Patient Seen: 08/23/25 Time Patient Seen: 13:55 Chief complaint: Colonoscopy/lab eo Narrative: Meliza is a 44-year-old woman here for her first screening colonoscopy. No family history of colon cancer. [facility] Medical History (Updated 08/23/25 @ 13:55 by Nicholas Greenwood MD) PTSD (post-traumatic stress disorder) B12 deficiency Ambien use disorder, moderate, in sustained remission, dependence Adult acne Kidney stones Irregular periods/menstrual cycles (~1997) Anxiety (~1997) Depression (~1997) Ovarian cyst (~1997) Surgical History Anesthesia History of back surgery Status post delivery (2016) Status post delivery (03/20/05) Status post delivery (04/23/02) History of third molar tooth extraction Social History (Updated 04/22/23 @ 15:06 by Jie Call RN) marital status: unmarried,living together number of children: 3 household members: family lives independently: Yes education level: college occupational status: employed Smoking Status: Never smoker alcohol intake: current substance use type: marijuana Meds Home Medications and Allergies Home Medications ?Medication ?Instructions ?Recorded ?Confirmed ?Type sumatriptan succinate 25 mg tablet 25 mg PO Q2H PRN for migraine #7 03/27/23 08/23/25 Rx tabs hydroxyzine HCl 25 mg tablet 25 mg PO BID PRN insomnia, anxiety 08/04/24 08/23/25 Rx #60 tabs trazodone 50 mg tablet 50 - 100 mg (1 - 2 x 50 mg) PO 08/04/24 08/23/25 Rx BEDTIME PRN insomnia #60 tabs cyanocobalamin (vitamin B-12) 1,000 mcg SUBCUT .COMPLEX #10 mL 09/16/24 08/23/25 Rx 1,000 mcg/mL injection solution lorazepam 0.5 mg tablet 0.5 mg PO DAILY PRN anxiety #30 03/19/25 08/23/25 Rx tabs ondansetron 4 mg disintegrating 4 mg PO Q8H PRN for 03/19/25 08/23/25 Rx tablet nausea/vomiting #30 tabs citalopram 20 mg tablet (Celexa) 20 mg PO DAILY #90 tabs 05/18/25 08/23/25 Rx prazosin 1 mg capsule 1 mg PO BEDTIME #30 caps 05/18/25 08/23/25 Rx peg 3350-electrolytes 236 240 ml PO Q10M #4,000 mL 06/03/25 08/23/25 Rx gram-22.74 gram-6.74 gram-5.86 gram solution (Golytely) dextroamphetamine-amphetamine 20 20 mg PO BID #60 tabs 06/11/25 08/23/25 Rx mg tablet (Adderall) dextroamphetamine-amphetamine 20 20 mg PO BID #60 tabs 06/11/25 08/23/25 Rx mg tablet (Adderall) dextroamphetamine-amphetamine 20 20 mg PO BID #60 tabs 06/11/25 08/23/25 Rx mg tablet (Adderall) peg 3350-electrolytes 236 240 ml PO Q10M #4,000 mL 07/09/25 Rx gram-22.74 gram-6.74 gram-5.86 gram solution (Golytely) spironolactone 100 mg tablet See Rx Instructions .Route 08/09/25 08/23/25 Rx .COMPLEX #90 tabs Allergies Allergy/AdvReac Type Severity Reaction Status Date / Time hydrocodone (HYDROCODONE) AdvReac Unknown ITCHING Verified 08/23/25 13:26 Exam Vital Signs (past 8 hours): - 08/23/25 13:36 Temperature 97.5 F L Pulse Rate 97 H Respiratory Rate 18 Blood Pressure 139/95 H Pulse Oximetry 96 Oxygen Delivery Method Room Air Oxygen Delivery Method Room Air Const General: healthy appearing Assessment & Plan Assessment and plan (1) Colon cancer screening: Status: Acute Plan Colonoscopy for colon cancer screening Time-Based Coding :: [TOTAL MINUTES] spent with patient and on the chart (including review of chart, obtaining history, exam, reviewing outside data, placing orders, documenting exam and treatment plan, and counseling patient) on [DATE]. [employer] Document charge(s): No
--- NOTE | 2025-08-23 14:12 | SUR.OPER ---
case aborted due to insufficient
--- NOTE | 2025-08-23 14:13 | PM.OP.COLON ---
Operative Date/Time/Diagnoses Date of procedure: 08/23/25 Time of procedure: 14:13 Pre-op diagnosis: Colon cancer screening Post-op diagnosis: same Procedure & Clinicians Study performed: Colonoscopy Same procedure(s) as scheduled: Yes Surgeon: Nicholas Greenwood Anesthesia Type: MAC +/- Procedure Notes Procedure in detail: Surgeon: Nicholas Greenwood MD Anesthesia: Rose Mary Olivier CRNA Procedure: The patient was brought to the endoscopy suite, placed in left lateral decubitus position. The patient was connected to monitoring devices. A time-out was performed. Sedation was administered. Once the patient was adequately sedated, a digital rectal exam was performed and was normal. The scope was then inserted and advanced to the sigmoid colon. The prep was inadequate to safely complete the procedure and the procedure was terminated. The patient was awakened and brought to recovery. Scope withdrawal time: Not applicable Sedation time: 3 minutes Findings: Incomplete prep Estimated Blood Loss: 0 Complications: none Post-procedure Disposition: PACU
[2025-08-23 14:20] VITALS: BP 111/69; BP 120/73; PULSE 81; RESP 18; TEMP 36.2; O2SAT 97
[2025-08-23 14:31] VITALS: BP 110/73; PULSE 83; RESP 18; TEMP 36.2; O2SAT 99
[2025-08-23 14:56] LABS: Folate 15.7 ng/mL (2.76-20.0); Vitamin B12 835 pg/mL (239-931)
--- NOTE | 2025-08-23 15:05 | SUR.PHASEII ---
Due to inability to complete scope, pt would like to be r/s to the soonest Saturday if possible,even if this means being scheduled with a different provider. If no Saturday availability then the soonest possible as she has things being seen on my scans. She also would like a different, stronger prep than Felipe. Called BRUCE valera on [employer] with these details, notified pt that message was left and to call office in a day or two if no callback by then. She verbalized understanding.
== END 2025-08-23 15:04 | disposition home or self-care (01) ==
PROVIDERS: PCP Family Medicine; Referring Provider Surgery; Visit Provider Surgery
PROC: 0DJD8ZZ Inspection of Lower Intestinal Tract, Via Natural or Artificial Opening Endoscopic (ICD-10-PCS; CPT 45378; principal; 2025-08-23 14:00)
DX: Z12.11 Encounter for screening for malignant neoplasm of colon (principal); Z53.09 Procedure and treatment not carried out because of other contraindication
CPT/HCPCS: 45378; 36415; 82607; 82746; J2704; J7120